=== PATIENT | male | born 1970 | race Caucasian/White ===

== ENCOUNTER 2022-11-27 09:15 | Outpatient (REF) | payer OTHER, SELFPAY ==
[2022-11-27 11:15] LABS: MANUAL DIFF FLAG NO
[2022-11-27 11:33] LABS: Basophils Percent Auto 0.7 % (0-2); Eosinophils Percent Auto 0.7 % (0-4); Hematocrit 41.3 % (42.0-52.0); Hemoglobin 14.2 g/dl (14.0-18.0); Imm Gran Abs Auto 0.02 X10*3/uL (0.00-0.03); Imm Gran Pct Auto 0.4 % (0.0-0.4); Lymphocytes Absolute Auto 1.5 X10*3/uL (1.2-4.9); Lymphocytes Percent Auto 31.5 % (20-40); Mean Corpuscular HGB Conc 34.4 g/dl (31.0-36.0); Mean Corpuscular Hemoglobin 29.6 pg (27.0-33.0); Mean Platelet Volume 10.3 fL (9.4-12.4); Monocytes Absolute Auto 0.4 X10*3/uL (0.1-1.2); Monocytes Percent Auto 7.6 % (2-11); Neutrophils Absolute Auto 2.7 x10*3/uL (2.0-8.3); Neutrophils Percent Auto 59.1 % (45-73); Platelet Count 266 X10*3/uL (160-400); Red Cell Distribution Width 13.2 % (11.0-16.0); White Blood Count 4.6 X10*3/uL (4.8-10.8)
[2022-11-27 11:57] LABS: Alanine Aminotransferase 41 U/L (0-40); Albumin Level 4.5 g/dL (3.5-5.0); Alkaline Phosphatase 74 U/L (39-117); Anion Gap 11 (12-20); Aspartate Amino Transferase 26 U/L (5-37); Bilirubin Total 1.2 mg/dL (0.0-1.0); Blood Urea Nitrogen 24 mg/dL (9-16); Calcium 9.5 mg/dL (8.4-10.2); Carbon Dioxide 25 mmol/L (22-29); Chloride 108 mmol/L (96-108); Cholesterol 191 mg/dL; Estimated Glomerular Filt Rate 56; Glucose Fasting 143 mg/dL (60-99); HDL Cholesterol 38 mg/dL; LDL Cholesterol Calculated 144 mg/dl; Potassium 4.7 mmol/L (3.3-5.1); Sodium 139 mmol/L (135-145); Total Protein 7.1 g/dL (6.5-8.0); Triglycerides 48 mg/dL
== END 2022-11-27 09:16 | disposition home or self-care (01) ==
LOC: HO.HMGCLDS 09:15
PROVIDERS: PCP Internal Medicine; Visit Provider Internal Medicine
DX: Z00.01 Encounter for general adult medical examination with abnormal findings (principal); I10 Essential (primary) hypertension
CPT/HCPCS: 36415; 80053; 80061; 84443; 85025

== ENCOUNTER 2023-01-29 12:50 | Outpatient (AMB) | payer OTHER, SELFPAY ==
--- NOTE | 2023-01-29 12:54 | A.OFFVIS_ITS ---
Intake Vital Signs 01/29/23 13:03 Height 6 ft 1 in Weight 211 lb 10.3 oz BMI 27.9 BP 126/79 Blood Pressure Location Lt brachial Position Sitting Pulse 83 Intake Visit Reasons: colonoscopy screening Intake Note: Mingo presents in the office as a new patient colonoscopy screening. CC: He states that his father passed from colorectal cancer. He was 74 years old when he passed and was diagnosed. 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 male here today for pre colonoscopy screening.? Patient was sent to us by his PCP.? This is his first colonoscopy screening.? Patient denies any gastrointestinal symptoms in the past or at present.? Patient reports that his father was diagnosed and from colon cancer about 3 years ago at age 74. Patient denies melena, hematochezia, unintentional weight loss or ribbon like stools. Patient states that he never been under anesthesia in the past. Negative for history of sleep apnea.? Denies any history of cardiac, renal, pulmonary, or hepatic disease.?? Recently diagnosed with diabetes, will manage with diet. No history of infectious? diseases like hepatitis A, B, C, HIV or tuberculosis.? Patient is not on any anticoagulation therapy. PFSH Family History Brother Substance use disorder Social History Housing: Apartment Patient Tobacco Use Status: Never used Tobacco e-Cigarette/Vaping Use: Never Used Second Hand Smoke Exposure: No service: No Current occupational status: employed Current occupation: [employer] Cognitive needs: No Hearing needs: No Vision needs: No Review of Systems Const Denies weight gain and Denies weight loss ENT Reports no additional complaints, Denies dysphagia and Denies odynophagia Card Reports no additional complaints Resp Reports no additional complaints GI Denies abdominal pain, Denies belching, Denies melena, Denies bloating, Denies change in bowel habits, Denies dysphagia, Denies excessive flatus, Denies dyspepsia, Denies heartburn, Denies diarrhea, Denies loose stools, Denies nausea, Denies odynophagia and Denies vomiting Reports no additional complaints Musc Reports no additional complaints Neuro Reports no additional complaints Psych Reports no additional complaints Endo Reports no additional complaints Physical Exam Const General: healthy appearing, no acute distress and well developed Nutritional Appearance: well nourished Orientation/consciousness: patient oriented x3 HEENT Head: Yes normal to inspection, Yes normocephalic and Yes atraumatic Face and sinus: Yes normal facial exam Mouth: Normal oral and palatal mucosa present Throat: Yes posterior oropharynx normal, Yes tonsils normal and Yes uvula midline Eyes General: appearance normal, both eyes and all related structures Neck Neck: Yes normal visual inspection, Yes full ROM and Yes trachea midline Thyroid: Thyroid normal Resp Effort & Inspection: normal respiratory effort, able to speak in complete sentences, no tracheal deviation and symmetric chest movement Auscultation: clear to auscultation bilaterally Cardio Rate: regular rate Heart sounds: S1 normal heart sound present and S2 normal heart sound present GI Inspection: Yes normal to inspection and No distended Palpation (GI): Soft to palpation, not firm, nontender and No hepatosplenomegaly present Auscultation: normal bowel sounds General: Yes no CVA tenderness Back/Spine/Pelvis Back: no CVA tenderness Skin General skin exam: elasticity normal, turgor normal and dry skin Neuro General: patient oriented x3 Psych Appearance: grossly normal Mental Status: mental status grossly normal Speech and movement: Normal speech and movement present Affect: normal affect Assessment & Plan Assessment & Plan (1) Colon cancer screening: Code(s): Z12.11 - Encounter for screening for malignant neoplasm of colon Plan: patient denies any GI, cardiac or respiratory symptoms.? Denies any issues with anesthesia in the past.? Denies any history of sleep apnea.? No history infectious diseases in the past or present.? Not on any anticoagulation therapy.? Patient denies melena, hematochezia, unintentional weight loss or ribbon like stools.? Discussed at length the pre-procedure,? prep, diet & medications as well as what to expect prior, during and after the procedure.?? Stressed the importance of good bowel prep. ?Recommended the use of Vaseline or Calmoseptine OTC & baby wipes with bowel movements to promote comfort.? ?Patient verbalizes understanding and agrees to plan of care.? He was given the opportunity to ask questions and all questions answered.? We will see him after the procedure.? Medications: New bisacodyl (Dulcolax (bisacodyl)) take 2 tabs at noon the day before your colonoscopy 10 mg (2 x 5 mg) PO ONCE 1 day 2 tabs 0RF Z12.11 - Encounter for screening for malignant neoplasm of colon polyethylene glycol 3350 (Miralax) As directed by gastroenterology department at [facility] 238 grams PO ONCE 238 grams 0RF Z12.11 - Encounter for screening for malignant neoplasm of colon Coding Level of Care Code New Pt Level 4 (43936) Diagnoses Colon cancer screening Z12.11 Time Spent (min) 40 Comment 30 minutes spent with patient and additional 10 minutes spent reviewing his records
[2023-01-29 13:03] VITALS: BP 126/79; PULSE 83; BMI 27.9
== END 2023-01-29 14:21 | disposition home or self-care (01) ==
PROVIDERS: PCP Internal Medicine; Visit Provider Nurse Practitioner Family
DX: Z01.818 Encounter for other preprocedural examination (principal); Z12.11 Encounter for screening for malignant neoplasm of colon; Z80.0 Family history of malignant neoplasm of digestive organs
CPT/HCPCS: 99204

== ENCOUNTER → 2023-01-29 12:50 | Outpatient (BNVA) | payer OTHER, SELFPAY | PROVIDERS: PCP Internal Medicine; Visit Provider Nurse Practitioner Family ==

== ENCOUNTER 2023-05-13 09:24 | Outpatient (REF) | payer OTHER, SELFPAY ==
[2023-05-13 11:44] LABS: Estimated Average Glucose 140 mg/dL; Hemoglobin A1c % 6.5 % (<6.0)
[2023-05-13 12:00] LABS: Alanine Aminotransferase 30 U/L (0-40); Albumin Level 4.2 g/dL (3.5-5.0); Alkaline Phosphatase 105 U/L (39-117); Anion Gap 10 (12-20); Aspartate Amino Transferase 24 U/L (5-37); Bilirubin Total 0.8 mg/dL (0.0-1.0); Blood Urea Nitrogen 17 mg/dL (9-16); Calcium 9.1 mg/dL (8.4-10.2); Carbon Dioxide 24 mmol/L (22-29); Chloride 106 mmol/L (96-108); Cholesterol 181 mg/dL (<200); Estimated Glomerular Filt Rate > 60; Glucose Fasting 130 mg/dL (60-99); HDL Cholesterol 38 mg/dL (>40); LDL Cholesterol Calculated 130 mg/dL (<100); Potassium 4.2 mmol/L (3.3-5.1); Sodium 136 mmol/L (135-145); Total Protein 7.2 g/dL (6.5-8.0); Triglycerides 69 mg/dL (<150)
== END 2023-05-13 09:25 | disposition home or self-care (01) ==
LOC: HO.HMGCLDS 09:24
PROVIDERS: PCP Internal Medicine; Visit Provider Internal Medicine
DX: R79.89 Other specified abnormal findings of blood chemistry (principal); E78.9 Disorder of lipoprotein metabolism, unspecified; L40.9 Psoriasis, unspecified; E11.65 Type 2 diabetes mellitus with hyperglycemia
CPT/HCPCS: 36415; 80053; 80061; 83036

== ENCOUNTER 2023-05-14 09:56 | Outpatient (REF) | payer OTHER, SELFPAY ==
[2023-05-14 14:22] LABS: Creatinine Urine 59.47 mg/dL; Microalbumin Urine < 5.0 mg/L
== END 2023-05-14 09:57 | disposition home or self-care (01) ==
LOC: HO.HMGCLDS 09:56
PROVIDERS: PCP Internal Medicine; Visit Provider Internal Medicine
DX: R79.89 Other specified abnormal findings of blood chemistry (principal); E78.9 Disorder of lipoprotein metabolism, unspecified; L40.9 Psoriasis, unspecified; E11.65 Type 2 diabetes mellitus with hyperglycemia
CPT/HCPCS: 82043; 82570

== ENCOUNTER 2023-05-15 09:33 | Outpatient (AMB) | payer OTHER, SELFPAY ==
[2023-05-15 09:36] VITALS: BP 128/88; PULSE 68; O2SAT 98; BMI 28.0
--- NOTE | 2023-05-15 09:36 | MHC.PC.OV ---
Vital Signs 05/15/23 09:36 Height 6 ft 1 in Weight 212 lb BMI 28.0 BP 128/88 Blood Pressure Location Rt brachial Position Sitting Pulse 68 Pulse Source Pulse Oximeter Pulse Oximetry (%) 98 Oxygen Delivery Method Room Air Intake Visit Reasons: 4 month follow up Allergies No Known Allergies [No Known Allergies*] Allergy (Verified 05/15/23 09:36) Medication List - Last Reconciled 05/15/23 by Magda Woodard MD bisacodyl (Dulcolax (bisacodyl)) 10 mg (2 x 5 mg) PO ONCE 1 day clobetasol 0.05% 1 appl topical BID 2 weeks polyethylene glycol 3350 (Miralax) 238 grams PO ONCE Tobacco use date assessed: 05/15/23 Dental Screening Dental Screen Date: 05/15/23 Did you have a dental visit in the last 12 months?: Yes Did you have a dental problem in the last 6 months where you did not have access to dental care?: No Was dental information given to patient?: Patient has dentist HPI 4 month follow up HPI Details Patient is a 52-year-old gentleman came in today for his regular follow-up appointment His hemoglobin A1c has improved to 6.5% from 6.6 Patient is a new onset diabetic and has been controlling his diet His liver enzymes are normal now And LDL has improved from before. Blood pressure is within normal range He will repeat labs again in 4 months with follow-up appointment [facility] Family History Brother Substance use disorder Social History Housing: Apartment Patient Tobacco Use Status: Never used Tobacco e-Cigarette/Vaping Use: Never Used Second Hand Smoke Exposure: No service: No Current occupational status: employed Current occupation: [employer] Cognitive needs: No Hearing needs: No Vision needs: No Questionnaire PHQ-9 Over the last 2 weeks, how often have you been bothered by any of the following problems? 1. Little interest or pleasure in doing things: not at all 2. Feeling down, depressed, or hopeless: not at all 3. Trouble falling or staying asleep, or sleeping too much: not at all 4. Feeling tired or having little energy: not at all 5. Poor appetite or overeating: not at all 6. Feeling bad about yourself - or that you are a failure or have let yourself or your family down: not at all 7. Trouble concentrating on things, such as reading the newspaper or watching television: not at all 8. Moving or speaking so slowly that other people could have noticed. Or the opposite - being so fidgety or restless that you have been moving around a lot more than usual: not at all 9. Thoughts that you would be better off or of hurting yourself in some way: not at all Total score: 0 Depression Screening Interpretation: Negative Depression Screening Done: Yes 83448 - PHQ-9 Billing: Yes Source: Developed by Drs. Toy Walls, Lashae Mtz, Estiven Daugherty and colleagues, with an educational jewels from [employer]. Thrive Questionnaire Date Thrive assessed: 11/20/22 AUDIT C Alcohol Use Questionnaire (AUDIT-C) 1. How often do you have a drink containing alcohol?: Never 3. How often do you have six or more drinks on one occasion?: Never Total Score: 0 Score Reviewed/Action Taken: Yes MARCO-7 AMB Questionnaire MARCO-7 Date MARCO - 7 assessed: 11/20/22 Source: Developed by Drs. Toy Walls, Lashae Mtz, Estiven Daugherty and colleagues, with an educational jewels from [employer]. Review of Systems Const Denies chills and Denies fever(s) ENT Denies epistaxis and Denies nasal discharge Card Denies chest pain Resp Denies chest congestion, Denies cough and Denies hemoptysis GI Denies diarrhea and Denies nausea Skin/Breast Denies rash Neuro Reports no additional complaints Psych Reports no additional complaints Endo Reports no additional complaints Physical exam (Primary Care) Vital Signs: Last Vital Signs Pulse 68 05/15/23 09:36 BP 128/88 05/15/23 09:36 Pulse Ox 98 05/15/23 09:36 Oxygen Delivery Method Room Air 05/15/23 09:36 BMI result Body Mass Index 28.0 Tobacco/Smoking Status: Tobacco use Status Tobacco use date assessed 05/15/23 05/15/23 09:37 Patient Tobacco Use Status Never used Tobacco 05/15/23 09:37 e-Cigarette/Vaping Use Never Used 05/15/23 09:37 PHQ-9: PHQ-9 Score PHQ-9: Total score 0 05/15/23 09:59 Depression Screening Interpretation: Negative Thrive Assessment: Date of Thrive Assessment Date Thrive assessed 11/20/22 05/15/23 09:37 Const General: cooperative, comfortable and no acute distress Orientation/consciousness: patient oriented x3 HENMT Head: Yes normocephalic Eyes General: appearance normal, both eyes and all related structures Neck Neck: Yes supple Resp Effort & Inspection: normal respiratory effort, no cough and no stridor Cardio Rhythm: regular rhythm Heart sounds: S1 normal heart sound present and S2 normal heart sound present Skin General skin exam: turgor normal Neuro General: patient oriented x3, tone normal and moves all extremities Extrem Right lower extremity: no edema Left lower extremity: no edema Assessment and Plan Assessment & Plan (1) Type 2 diabetes mellitus: Code(s): E11.9 - Type 2 diabetes mellitus without complications Qualifiers: Diabetes mellitus intermediate manager insulin use: without long-term use Diabetes mellitus complication status: without complication Qualified Code(s): E11.9 - Type 2 diabetes mellitus without complications Plan Patient is a 52-year-old gentleman came in today for his regular follow-up appointment His hemoglobin A1c has improved to 6.5% from 6.6 Patient is a new onset diabetic and has been controlling his diet His liver enzymes are normal now And LDL has improved from before. Blood pressure is within normal range He will repeat labs again in 4 months with follow-up appointment Orders: Orders Complete Blood Count Auto Diff 4 Months E11.9 - Type 2 diabetes mellitus without complications Lipid Panel 4 Months E11.9 - Type 2 diabetes mellitus without complications Comprehensive [place]. Panel Fast 4 Months E11.9 - Type 2 diabetes mellitus without complications Hemoglobin A1c 4 Months E11.9 - Type 2 diabetes mellitus without complications Coding Level of Care Code Est Pt Level 3 (40996) Diagnoses Type 2 diabetes mellitus without complication, without long-term current use of insulin E11.9 Diabetes mellitus long-term insulin use: without long-term use Diabetes mellitus complication status: without complication
== END 2023-05-15 10:46 | disposition home or self-care (01) ==
PROVIDERS: PCP Internal Medicine; Visit Provider Internal Medicine
DX: E11.9 Type 2 diabetes mellitus without complications (principal)
CPT/HCPCS: 99213

== ENCOUNTER 2023-07-03 07:24 | Day surgery (SDC) | payer OTHER, SELFPAY ==
[2023-06-28 13:30] VITALS: BMI 28.0
--- NOTE | 2023-07-03 07:42 | P.HPSUR_ITS ---
Pre-Procedural Eval Section A Date of Service: 07/03/23 Section B Chief Complaint: Encounter for screening for malignant neoplasm Details of Present Illness: father CRC but was 74 Relevant Family History (Specify if Yes): Yes Relevant Social History: None Present Medications: see Short Stay Collaborative assessment Medical History: Significant History (Psoriasis Lipid disorder Diabetes) History of Previous Operations: No relevant previous surgery Allergies: Allergies Allergy/AdvReac Type Severity Reaction Status Date / Time No Known Allergies Allergy Verified 05/15/23 09:36 [No Known Allergies*] Review of Systems Sugical H&P ROS: Negative: Constitution, Cardiovascular, Respiratory, Neurological, Psychiatric, Hem-Onc, Allergic/Immunologic, Gastrointestinal, Genitourinary, Musculoskeletal, Integumentary, Endocrine and E yes/Ears/Nose/Throat Exam Surgical H&P Exam: Normal: HEENT, Normal: Heart, Normal: Lungs, Normal: Extremities, Normal: Abdomen, Normal: Skin and Normal: Neurological Plan Diagnosis/Plan: Unchanged I have reviewed the history and physical and performed a pertinent physical examination on my patient. No changes have occurred unless specified. Time Spent With Patient Time: Total time managing care of this patient today ____ minutes.
[2023-07-03 08:04] VITALS: BP 125/87; PULSE 92; RESP 16; TEMP 36.9; O2SAT 98; BMI 27.5
--- NOTE | 2023-07-03 08:20 | P.CONAN_ITS ---
HPI - Anesthesia Eval Consult details Narrative: Colonoscopy [facility] Active Problems Active Problems: All Active Problems (Updated 06/28/23 @ 13:29 by Ana Alexander RN) Type 2 diabetes mellitus (Acute) Lipid disorder (Acute) LFT elevation (Acute) Elevated blood sugar (Acute) Colon cancer screening (Acute) Psoriasis (Acute) Encounter for general adult medical examination with abnormal findings (Acute) Rash (Acute) Past Medical History Medical History (Updated 06/28/23 @ 13:29 by Ana Alexander RN) Psoriasis Lipid disorder Diabetes Family History Family History Brother Substance use disorder Family history of problems with anesthesia: No Surgical History Surgical History (Updated 07/03/23 @ 08:03 by Meghan Aiken) No pertinent past surgical history History of Problems with Anesthesia: No Social History Social History Housing: Apartment Patient Tobacco Use Status: Never used Tobacco e-Cigarette/Vaping Use: Never Used Second Hand Smoke Exposure: No Use of substances other than those prescribed or required for medical reasons: No Are you DNR?: No Advance Directives: No Advance Directives Information Provided: Yes service: No Current occupational status: employed Current occupation: [employer] Cognitive needs: No Hearing needs: No Vision needs: No Meds Allergies Allergy/AdvReac Type Severity Reaction Status Date / Time No Known Allergies Allergy Verified 07/03/23 08:03 [No Known Allergies*] Exam Height,Weight and Vital Signs: Height 6 ft 1 in Weight 94.71 kg Last Vital Signs Temp 98.4 F 07/03/23 08:04 Pulse 92 07/03/23 08:04 Resp 16 07/03/23 08:04 BP 125/87 07/03/23 08:04 Pulse Ox 98 07/03/23 08:04 O2 Del Method Room Air 07/03/23 08:04 Airway Mallampati Class: II TM Dist: >3cm Neck ROM: Full Heart: rrr Lungs: cta Assessment and Plan Final Anesthetic Review Family History of Problems with Anesthesia: No History of Problems with Anesthesia: No NPO: Yes Final Preanesthetic Review: No Changes in Pt Med Stat, Meds/Allgs Chart Reviewed, Consent Obtained/Reviewed and Anes Risks/Benef Reviewed Patient Risk: Intermediate Procedure Risk: Low Anesthetic Plan Anesthetic Plan: MAC: and Agree w/ Assess. and Plan Disposition: Standard PACU
[2023-07-03] MEDS: Lactated Ringers 1,000 ML 80 ML IVCONT (08:52)
--- NOTE | 2023-07-03 08:56 | W.PM.OPN ---
Operative Note Operative Note Date of Service: 07/03/23 Narrative: Operative Information Procedure Description: Colonoscopy Indication: screening Anesthesia: MAC COLONOSCOPY Instrument: Olympus variable stiffness pediatric scope 190L Colonoscopy Monitoring: Vital signs and clinical assessment, continuous EKG monitoring, Pulse oximetry, Carbon Dioxide monitoring and blood pressure monitoring were done throughout the procedure. Colon withdrawal time was 23 minutes. Procedure: The patient was placed in the left lateral decubitis position and pre-procedure medications were administered. After a digital rectal examination of the ano-rectum, the video colonoscope was inserted into the rectum and advanced through the colon to the cecum/TI. The colonoscope was slowly withdrawn in a retrograde panoramic fashion and the colon mucosa was carefully examined including a retroflexed view of the rectum. Findings and interventions are described below. Procedure Difficulty: easy Findings: Terminal Ileum-normal Cecum:normal Ascending Colon: 10-12 mm flat polyp raised with eleview and then removed with cold snare with one ultra clip applied to the defect Transverse Colon - 4-5 mm sessile polyp removed with cold forceps Descending Colon:normal Sigmoid Colon: normal Rectum: Retroflexion with small internal hemorrhoids, grade I, 10 mm sessile polyp removed with cold snare Anorectum - normal Colon preparation: [place] Bowel Preparation Scale Right colon; 3 Transverse colon: 2 Left colon; 1-2 (0 = Unprepared colon segment with mucosa not seen due to solid stool that cannot be cleared. 1 = Portion of mucosa of the colon segment seen, but other areas of the colon segment not well seen due to staining, residual stool and/or opaque liquid. 2 = Minor amount of residual staining, small fragments of stool and/or opaque liquid, but mucosa of colon segment seen well. 3 = Entire mucosa of colon segment seen well with no residual staining, small fragments of stool or opaque liquid) Impression and Post Procedure Diagnosis: polyps internal hemorrhoids Plan: High fiber diet leaflet Avoid straining at stool, epsom salts and sitz bath, anusol supps or cream Repeat Colonoscopy in 3-4 years due to polyps or earlier if clinically indicated Above findings were reviewed with the patient and relevant handouts were provided if indicated.
--- NOTE | 2023-07-03 10:00 | PC.NURSE ---
Patient has diagnosis of DM2. Diet controlled. Does not take blood sugars at home. No preop blood sugar needed per Dr. Dick.
[2023-07-03 10:36] VITALS: BP 116/73; PULSE 86; RESP 16; TEMP 36.3; O2SAT 97
[2023-07-03 10:51] VITALS: BP 114/78; PULSE 82; RESP 14; O2SAT 98
[2023-07-03 11:06] VITALS: BP 128/86; PULSE 79; RESP 15; TEMP 37.1; O2SAT 99
== END 2023-07-03 11:23 | disposition home or self-care (01) ==
PROVIDERS: PCP Internal Medicine; Visit Provider Internal Medicine Gastroenterology
PROC: 0DJD8ZZ Inspection of Lower Intestinal Tract, Via Natural or Artificial Opening Endoscopic (ICD-10-PCS; CPT 45378; principal; 2023-07-03 09:00)
DX: Z12.11 Encounter for screening for malignant neoplasm of colon (principal); Z80.0 Family history of malignant neoplasm of digestive organs; D12.2 Benign neoplasm of ascending colon; D12.3 Benign neoplasm of transverse colon; K62.1 Rectal polyp; K64.0 First degree hemorrhoids; E11.9 Type 2 diabetes mellitus without complications; E75.6 Lipid storage disorder, unspecified; L40.9 Psoriasis, unspecified; Z79.899 Other long term (current) drug therapy
CPT/HCPCS: 45385; 45380; 45381; 88305; J2704

== ENCOUNTER → 2023-07-03 07:24 | Outpatient (BNV) | payer OTHER, SELFPAY | PROVIDERS: PCP Internal Medicine; Visit Provider Internal Medicine Gastroenterology | DX: Z12.11 Encounter for screening for malignant neoplasm of colon (principal); K63.5 Polyp of colon; K64.8 Other hemorrhoids | CPT/HCPCS: 45380; 45385 ==

== ENCOUNTER 2023-07-17 09:30 | Outpatient (AMB) | payer OTHER, SELFPAY ==
--- NOTE | 2023-07-17 09:31 | MHC.OFFVIS ---
Intake Vital Signs 07/17/23 09:33 Height 6 ft 1 in Weight 209 lb 7.026 oz BMI 27.6 BP 140/63 H Blood Pressure Location Lt brachial Position Sitting Pulse 94 Intake Visit Reasons: S/P [place]; OGLESBY Intake Note: Mingo presents in the office as a follow up colonoscopy. CC: He states that he is feeling good and no concers at this time. Allergies No Known Allergies [No Known Allergies*] Allergy (Verified 07/17/23 09:33) HPI S/P [place]; OGLESBY HPI Details LAST VISIT: Colon cancer screening patient denies any GI, cardiac or respiratory symptoms.? Denies any issues with anesthesia in the past.? Denies any history of sleep apnea.? No history infectious diseases in the past or present.? Not on any anticoagulation therapy.? Patient denies melena, hematochezia, unintentional weight loss or ribbon like stools.? Discussed at length the pre-procedure,? prep, diet & medications as well as what to expect prior, during and after the procedure.?? Stressed the importance of good bowel prep. ?Recommended the use of Vaseline or Calmoseptine OTC & baby wipes with bowel movements to promote comfort.? ?Patient verbalizes understanding and agrees to plan of care.? He was given the opportunity to ask questions and all questions answered.? We will see him after the procedure.? Plan Medications New bisacodyl (Dulcolax (bisacodyl)) take 2 tabs at noon the day before your colonoscopy 10 mg (2 x 5 mg) PO ONCE 1 day 2 tabs 0RF Z12.11 - Encounter for screening for malignant neoplasm of colon polyethylene glycol 3350 (Miralax) As directed by gastroenterology department at [facility] 238 grams PO ONCE 238 grams 0RF Z12.11 - Encounter for screening for malignant neoplasm of colon COLONOSCOPY Findings: Terminal Ileum-normal Cecum:normal Ascending Colon: 10-12 mm flat polyp raised with eleview and then removed with cold snare with one ultra clip applied to the defect Transverse Colon - 4-5 mm sessile polyp removed with cold forceps Descending Colon:normal Sigmoid Colon: normal Rectum: Retroflexion with small internal hemorrhoids, grade I, 10 mm sessile polyp removed with cold snare Anorectum - normal Colon preparation: [place] Bowel Preparation Scale Right colon; 3 Transverse colon: 2 Left colon; 1-2 (0 = Unprepared colon segment with mucosa not seen due to solid stool that cannot be cleared. 1 = Portion of mucosa of the colon segment seen, but other areas of the colon segment not well seen due to staining, residual stool and/or opaque liquid. 2 = Minor amount of residual staining, small fragments of stool and/or opaque liquid, but mucosa of colon segment seen well. 3 = Entire mucosa of colon segment seen well with no residual staining, small fragments of stool or opaque liquid) Impression and Post Procedure Diagnosis: polyps internal hemorrhoids Plan: High fiber diet leaflet Avoid straining at stool, epsom salts and sitz bath, anusol supps or cream Repeat Colonoscopy in 3-4 years due to polyps or earlier if clinically indicated PATHOLOGY RESULTS Diagnosis A. Colon, transverse, polypectomy: Tubular adenoma; negative for high-grade dysplasia or carcinoma. B. Colon, ascending, polypectomy: Fragments of sessile serrated lesion/polyp; negative for cytologic dysplasia. C. Rectum, polypectomy: Hyperplastic mucosal polyp. TODAY'S VISIT: Patient is here today for follow-up and to discuss colonoscopy results. Patient denies any ill effects from the prep, anesthesia or procedure itself. Patient reports to be feeling well. Denies any GI concerning symptoms. Patient was found to have tubular adenoma and sessile serrated polyps found. Patient will need to return for colonoscopy in 3 years. Patient denies melena, hematochezia, unintentional weight loss or ribbon like stools. Patient denies any dyspepsia, dysphagia or odynophagia. [facility] Medical History (Updated 07/17/23 @ 09:49 by BRIT Perez-) Sessile serrated polyp of colon Tubular adenoma of colon Psoriasis Lipid disorder Diabetes Surgical History (Updated 07/17/23 @ 09:33 by YESSENIA Dumas) Hx of colonoscopy No pertinent past surgical history Family History Brother Substance use disorder Social History Housing: Apartment Patient Tobacco Use Status: Never used Tobacco e-Cigarette/Vaping Use: Never Used Second Hand Smoke Exposure: No service: No Current occupational status: employed Current occupation: [employer] Cognitive needs: No Hearing needs: No Vision needs: No Review of Systems Const Denies weight gain and Denies weight loss ENT Reports no additional complaints, Denies dysphagia and Denies odynophagia Card Reports no additional complaints Resp Reports no additional complaints GI Denies abdominal pain, Denies belching, Denies melena, Denies bloating, Denies change in bowel habits, Denies dysphagia, Denies excessive flatus, Denies dyspepsia, Denies heartburn, Denies diarrhea, Denies loose stools, Denies nausea, Denies odynophagia and Denies vomiting Reports no additional complaints Musc Reports no additional complaints Neuro Reports no additional complaints Psych Reports no additional complaints Endo Reports no additional complaints Physical Exam Vital Signs: Last Vital Signs Pulse 94 07/17/23 09:33 BP 140/63 H 07/17/23 09:33 BMI result Body Mass Index 27.6 Const General: healthy appearing, no acute distress and well developed Nutritional Appearance: well nourished Orientation/consciousness: patient oriented x3 HEENT Head: Yes normal to inspection, Yes normocephalic and Yes atraumatic Face and sinus: Yes normal facial exam Mouth: Normal oral and palatal mucosa present Throat: Yes posterior oropharynx normal, Yes tonsils normal and Yes uvula midline Eyes General: appearance normal, both eyes and all related structures Neck Neck: Yes normal visual inspection, Yes full ROM and Yes trachea midline Thyroid: Thyroid normal Resp Effort & Inspection: normal respiratory effort, able to speak in complete sentences, no tracheal deviation and symmetric chest movement Auscultation: clear to auscultation bilaterally Cardio Rate: regular rate GI Inspection: Yes normal to inspection and No distended Palpation (GI): Soft to palpation, not firm, nontender and No hepatosplenomegaly present Auscultation: normal bowel sounds General: Yes no CVA tenderness Back/Spine/Pelvis Back: no CVA tenderness Skin General skin exam: elasticity normal, turgor normal and dry skin Neuro General: patient oriented x3 Psych Appearance: grossly normal Mental Status: mental status grossly normal Assessment & Plan Assessment & Plan (1) Tubular adenoma of colon: Code(s): D12.6 - Benign neoplasm of colon, unspecified (2) Sessile serrated polyp of colon: Code(s): D12.6 - Benign neoplasm of colon, unspecified (3) Status post colonoscopy: Code(s): Z98.890 - Other specified postprocedural states Plan Patient denies any ill effects from the prep, anesthesia or procedure itself. Patient will repeat colonoscopy in 3 years, sooner if clinically necessary. Currently patient denies any GI concerning symptoms and will follow-up in our office on as needed basis. He is agreeable to this plan and verbalizes understanding of instructions. He was given the opportunity to ask questions and all questions answered. Thank you for allowing me to participate in his care Coding Level of Care Code Est Pt Level 3 (29499) Diagnoses Tubular adenoma of colon D12.6 Sessile serrated polyp of colon D12.6 Status post colonoscopy Z98.890 Time Spent (min) 25 Comment 15 minutes spent with patient and additional 10 minutes spent reviewing his records
[2023-07-17 09:33] VITALS: BP 140/63; PULSE 94; BMI 27.6
== END 2023-07-17 10:02 | disposition home or self-care (01) ==
PROVIDERS: PCP Internal Medicine; Visit Provider Nurse Practitioner Family
DX: D12.6 Benign neoplasm of colon, unspecified (principal); Z98.890 Other specified postprocedural states
CPT/HCPCS: 99213

== ENCOUNTER → 2023-07-17 09:30 | Outpatient (BNVA) | payer OTHER, SELFPAY | PROVIDERS: PCP Internal Medicine; Visit Provider Nurse Practitioner Family ==

== ENCOUNTER 2023-09-16 08:38 | Outpatient (REF) | payer OTHER, SELFPAY ==
[2023-09-16 11:21] LABS: MANUAL DIFF FLAG NO
[2023-09-16 11:48] LABS: Basophils Percent Auto 0.4 % (0-2); Eosinophils Absolute Auto 0.1 X10*3/uL (0.0-0.4); Eosinophils Percent Auto 1.1 % (0-4); Hematocrit 41.3 % (42.0-52.0); Hemoglobin 13.8 g/dl (14.0-18.0); Imm Gran Abs Auto 0.02 X10*3/uL (0.00-0.03); Imm Gran Pct Auto 0.4 % (0.0-0.4); Lymphocytes Absolute Auto 1.2 X10*3/uL (1.2-4.9); Lymphocytes Percent Auto 21.8 % (20-40); Mean Corpuscular HGB Conc 33.4 g/dl (31.0-36.0); Mean Corpuscular Hemoglobin 29.1 pg (27.0-33.0); Mean Corpuscular Volume 87.1 fL (80.0-98.0); Mean Platelet Volume 9.8 fL (9.4-12.4); Monocytes Absolute Auto 0.4 X10*3/uL (0.1-1.2); Monocytes Percent Auto 7.5 % (2-11); Neutrophils Absolute Auto 3.7 x10*3/uL (2.0-8.3); Neutrophils Percent Auto 68.8 % (45-73); Platelet Count 245 X10*3/uL (160-400); Red Blood Count 4.74 X10*6/uL (4.60-5.80); Red Cell Distribution Width 13.9 % (11.0-16.0); White Blood Count 5.3 X10*3/uL (4.8-10.8)
[2023-09-16 11:54] LABS: Alanine Aminotransferase 27 U/L (0-40); Albumin Level 4.4 g/dL (3.5-5.0); Alkaline Phosphatase 88 U/L (39-117); Anion Gap 10 (12-20); Aspartate Amino Transferase 24 U/L (5-37); Bilirubin Total 1.3 mg/dL (0.0-1.0); Blood Urea Nitrogen 16 mg/dL (9-16); Calcium 9.5 mg/dL (8.4-10.2); Carbon Dioxide 29 mmol/L (22-29); Chloride 106 mmol/L (96-108); Cholesterol 198 mg/dL (<200); Estimated Glomerular Filt Rate > 60; Glucose Fasting 134 mg/dL (60-99); HDL Cholesterol 42 mg/dL (>40); LDL Cholesterol Calculated 141 mg/dL (<100); Potassium 4.3 mmol/L (3.3-5.1); Sodium 141 mmol/L (135-145); Total Protein 7.5 g/dL (6.5-8.0); Triglycerides 75 mg/dL (<150)
[2023-09-16 12:12] LABS: Estimated Average Glucose 140 mg/dL; Hemoglobin A1c % 6.5 % (<6.0)
== END 2023-09-16 08:39 | disposition home or self-care (01) ==
LOC: HO.HMGCLDS 08:38
PROVIDERS: PCP Internal Medicine; Visit Provider Internal Medicine
DX: E11.9 Type 2 diabetes mellitus without complications (principal)
CPT/HCPCS: 36415; 80053; 80061; 83036; 85025

== ENCOUNTER 2023-09-18 08:39 | Outpatient (AMB) | payer OTHER, SELFPAY ==
[2023-09-18 08:42] VITALS: BP 136/74; PULSE 101; O2SAT 98; BMI 27.7
--- NOTE | 2023-09-18 08:42 | MHC.PC.OV ---
Vital Signs 09/18/23 08:42 Height 6 ft 1 in Weight 210 lb 2 oz BMI 27.7 BP 136/74 Blood Pressure Location Lt brachial Position Sitting Pulse 101 H Pulse Source Pulse Oximeter Pulse Oximetry (%) 98 Oxygen Delivery Method Room Air Intake Visit Reasons: 4 Month follow up Allergies No Known Allergies [No Known Allergies*] Allergy (Verified 09/18/23 08:42) Medication List - Last Reconciled 09/18/23 by Magda Woodard MD clobetasol 0.05% 1 appl topical BID 2 weeks Tobacco use date assessed: 09/18/23 Dental Screening Dental Screen Date: 09/18/23 Did you have a dental visit in the last 12 months?: Yes Did you have a dental problem in the last 6 months where you did not have access to dental care?: No Was dental information given to patient?: Patient has dentist HPI 4 Month follow up HPI Details Patient is a 53-year-old gentleman came in today for his regular follow-up appointment Diabetes mellitus: Diet-controlled hemoglobin A1c came back at 6.5 at recent labs Blood pressure is 136/74 patient is prehypertensive, we will continue to monitor LDL came back at 141 we talked about starting medication small dose, we will be labs again next time and if it is still above 100 we will start medication Had colonoscopy done by Dr. Judd 1 tubular adenoma was found patient also have a family history of colon cancer Next colonoscopy will be in for years that is 2028 Psoriatic rash stable Follow-up 4 months labs are needed before visit with fasting [facility] Medical History Sessile serrated polyp of colon Tubular adenoma of colon Psoriasis Lipid disorder Diabetes Surgical History Hx of colonoscopy No pertinent past surgical history Family History Brother Substance use disorder Social History Housing: Apartment Patient Tobacco Use Status: Never used Tobacco e-Cigarette/Vaping Use: Never Used Second Hand Smoke Exposure: No service: No Current occupational status: employed Current occupation: [employer] Cognitive needs: No Hearing needs: No Vision needs: No Questionnaire PHQ-9 Over the last 2 weeks, how often have you been bothered by any of the following problems? 1. Little interest or pleasure in doing things: not at all 2. Feeling down, depressed, or hopeless: not at all 3. Trouble falling or staying asleep, or sleeping too much: not at all 4. Feeling tired or having little energy: not at all 5. Poor appetite or overeating: not at all 6. Feeling bad about yourself - or that you are a failure or have let yourself or your family down: not at all 7. Trouble concentrating on things, such as reading the newspaper or watching television: not at all 8. Moving or speaking so slowly that other people could have noticed. Or the opposite - being so fidgety or restless that you have been moving around a lot more than usual: not at all 9. Thoughts that you would be better off or of hurting yourself in some way: not at all Total score: 0 Depression Screening Interpretation: Negative Depression Screening Done: Yes 06343 - PHQ-9 Billing: Yes Source: Developed by Drs. Toy Walls, Lashae Mtz, Estiven Daugherty and colleagues, with an educational jewels from [employer]. Thrive Questionnaire Date Thrive assessed: 09/18/23 I am a: Patient What is your living situation today?: I have a steady place to live Within the past 12 months, did the food you bought not last and you didn't have the money to get more?: Never true Within the past 12 months, did you worry whether your food would run out before you got money to buy more?: Never true Do you have trouble paying for medicines?: No Do you have trouble getting transportation to medical appointments?: No Do you have trouble paying your heating and electricity bill?: No Do you have trouble taking care of your child, family member or friend?: No Do you have trouble with day-to-day activities such as bathing, preparing meals, shopping, managing finances, etc.?: No Are you currently unemployed and looking for a job?: No Are you interested in more education?: No Please select the resources that you would like help with: None Currently or been in a relationship where the following occur: no concerns reported THRIVE Score: 0 AUDIT C Alcohol Use Questionnaire (AUDIT-C) 1. How often do you have a drink containing alcohol?: Never 3. How often do you have six or more drinks on one occasion?: Never Total Score: 0 Score Reviewed/Action Taken: Yes MARCO-7 AMB Questionnaire MARCO-7 Date MARCO - 7 assessed: 09/18/23 Feeling nervous, anxious, or on edge: 0 = Not at all Not being able to stop or control worryin = Not at all Worrying too much about different things: 0 = Not at all Trouble relaxin = Not at all Being so restless that it is hard to sit still: 0 = Not at all Becoming easily annoyed or irritable: 0 = Not at all Feeling afraid as if something awful might happen: 0 = Not at all Total MARCO-7 score (0-4 normal; 5-9 mild; 10-14 moderate; 15-21 severe): 0 Source: Developed by Drs. Toy Walls, Lashae Mtz, Estiven Daugherty and colleagues, with an educational jewels from [employer]. MARCO-7 Assessment Billing MARCO-7 Assessment Tool: MARCO-7 Assessment 01902 Review of Systems Const Denies chills and Denies fever(s) ENT Denies epistaxis and Denies nasal discharge Card Denies chest pain Resp Denies chest congestion, Denies cough and Denies hemoptysis GI Denies diarrhea and Denies nausea Skin/Breast Denies rash Neuro Reports no additional complaints Psych Reports no additional complaints Endo Reports no additional complaints Physical exam (Primary Care) Vital Signs: Last Vital Signs Pulse 101 H 09/18/23 08:42 BP 136/74 09/18/23 08:42 Pulse Ox 98 09/18/23 08:42 Oxygen Delivery Method Room Air 09/18/23 08:42 BMI result Body Mass Index 27.7 Tobacco/Smoking Status: Tobacco use Status Tobacco use date assessed 09/18/23 09/18/23 08:43 Patient Tobacco Use Status Never used Tobacco 09/18/23 08:43 e-Cigarette/Vaping Use Never Used 09/18/23 08:43 PHQ-9: PHQ-9 Score PHQ-9: Total score 0 09/18/23 09:00 Depression Screening Interpretation: Negative Thrive Assessment: Date of Thrive Assessment Date Thrive assessed 09/18/23 09/18/23 08:46 Currently or been in a relationship where the following occur: no concerns reported Const General: cooperative, comfortable and no acute distress Orientation/consciousness: patient oriented x3 HENMT Head: Yes normocephalic Eyes General: appearance normal, both eyes and all related structures Neck Neck: Yes supple Resp Effort & Inspection: normal respiratory effort, no cough and no stridor Cardio Rhythm: regular rhythm Heart sounds: S1 normal heart sound present and S2 normal heart sound present Skin General skin exam: turgor normal Neuro General: patient oriented x3, tone normal and moves all extremities Extrem Right lower extremity: no edema Left lower extremity: no edema Assessment and Plan Assessment & Plan (1) Type 2 diabetes mellitus: Code(s): E11.9 - Type 2 diabetes mellitus without complications Qualifiers: Diabetes mellitus complication status: without complication Diabetes mellitus custodial insulin use: without custodial use Qualified Code(s): E11.9 - Type 2 diabetes mellitus without complications (2) Lipid disorder: Code(s): E78.9 - Disorder of lipoprotein metabolism, unspecified (3) LFT elevation: Code(s): R79.89 - Other specified abnormal findings of blood chemistry (4) Tubular adenoma of colon: Code(s): D12.6 - Benign neoplasm of colon, unspecified (5) Psoriasis: Code(s): L40.9 - Psoriasis, unspecified Plan Patient is a 53-year-old gentleman came in today for his regular follow-up appointment Diabetes mellitus: Diet-controlled hemoglobin A1c came back at 6.5 at recent labs Blood pressure is 136/74 patient is prehypertensive, we will continue to monitor LDL came back at 141 we talked about starting medication small dose, we will be labs again next time and if it is still above 100 we will start medication Had colonoscopy done by Dr. Judd 1 tubular adenoma was found patient also have a family history of colon cancer Next colonoscopy will be in for years that is 2028 Psoriatic rash stable Follow-up 4 months labs are needed before visit with fasting Orders: Orders Hemoglobin A1c 3 Months D12.6 - Benign neoplasm of colon, unspecified, E11.9 - Type 2 diabetes mellitus without complications, E78.9 - Disorder of lipoprotein metabolism, unspecified, L40.9 - Psoriasis, unspecified, R79.89 - Other specified abnormal findings of blood chemistry Comprehensive [place]. Panel Fast 3 Months D12.6 - Benign neoplasm of colon, unspecified, E11.9 - Type 2 diabetes mellitus without complications, E78.9 - Disorder of lipoprotein metabolism, unspecified, L40.9 - Psoriasis, unspecified, R79.89 - Other specified abnormal findings of blood chemistry Lipid Panel 3 Months D12.6 - Benign neoplasm of colon, unspecified, E11.9 - Type 2 diabetes mellitus without complications, E78.9 - Disorder of lipoprotein metabolism, unspecified, L40.9 - Psoriasis, unspecified, R79.89 - Other specified abnormal findings of blood chemistry Complete Blood Count Auto Diff 3 Months D12.6 - Benign neoplasm of colon, unspecified, E11.9 - Type 2 diabetes mellitus without complications, E78.9 - Disorder of lipoprotein metabolism, unspecified, L40.9 - Psoriasis, unspecified, R79.89 - Other specified abnormal findings of blood chemistry Microalbumin, Random (w Creat) 3 Months D12.6 - Benign neoplasm of colon, unspecified, E11.9 - Type 2 diabetes mellitus without complications, E78.9 - Disorder of lipoprotein metabolism, unspecified, L40.9 - Psoriasis, unspecified, R79.89 - Other specified abnormal findings of blood chemistry Coding Level of Care Code Est Pt Level 4 (29238) Diagnoses Type 2 diabetes mellitus without complication, without long-term current use of insulin E11.9 Diabetes mellitus complication status: without complication Diabetes mellitus custodial insulin use: without custodial use Lipid disorder E78.9 LFT elevation R79.89 Tubular adenoma of colon D12.6 Psoriasis L40.9 Additional Codes MARCO-7 Assessment Billing - MARCO-7 Assessment Tool: MARCO-7 Assessment 17204 ([id number])
== END 2023-09-18 12:00 | disposition home or self-care (01) ==
PROVIDERS: PCP Internal Medicine; Visit Provider Internal Medicine
DX: E11.9 Type 2 diabetes mellitus without complications (principal); E78.9 Disorder of lipoprotein metabolism, unspecified; R79.89 Other specified abnormal findings of blood chemistry; D12.6 Benign neoplasm of colon, unspecified; L40.9 Psoriasis, unspecified
CPT/HCPCS: 99214

== ENCOUNTER 2024-01-08 08:47 | Outpatient (REF) | payer OTHER, SELFPAY ==
[2024-01-08 10:08] LABS: MANUAL DIFF FLAG NO
[2024-01-08 10:16] LABS: Basophils Percent Auto 0.7 % (0-2); Eosinophils Absolute Auto 0.1 X10*3/uL (0.0-0.4); Eosinophils Percent Auto 1.9 % (0-4); Hematocrit 41.5 % (42.0-52.0); Hemoglobin 13.8 g/dl (14.0-18.0); Imm Gran Abs Auto 0.02 X10*3/uL (0.00-0.03); Imm Gran Pct Auto 0.3 % (0.0-0.4); Lymphocytes Absolute Auto 1.6 X10*3/uL (1.2-4.9); Lymphocytes Percent Auto 26.9 % (20-40); Mean Corpuscular HGB Conc 33.3 g/dl (31.0-36.0); Mean Corpuscular Hemoglobin 29.1 pg (27.0-33.0); Mean Corpuscular Volume 87.4 fL (80.0-98.0); Mean Platelet Volume 9.8 fL (9.4-12.4); Monocytes Absolute Auto 0.5 X10*3/uL (0.1-1.2); Monocytes Percent Auto 8.4 % (2-11); Neutrophils Absolute Auto 3.6 x10*3/uL (2.0-8.3); Neutrophils Percent Auto 61.8 % (45-73); Platelet Count 262 X10*3/uL (160-400); Red Blood Count 4.75 X10*6/uL (4.60-5.80); Red Cell Distribution Width 13.6 % (11.0-16.0); White Blood Count 5.8 X10*3/uL (4.8-10.8)
[2024-01-08 10:21] LABS: Estimated Average Glucose 143 mg/dL; Hemoglobin A1c % 6.6 % (<6.0)
[2024-01-08 10:26] LABS: Alanine Aminotransferase 29 U/L (0-40); Albumin Level 4.3 g/dL (3.5-5.0); Alkaline Phosphatase 87 U/L (39-117); Anion Gap 10 (12-20); Aspartate Amino Transferase 25 U/L (5-37); Bilirubin Total 1.2 mg/dL (0.0-1.0); Blood Urea Nitrogen 19 mg/dL (9-16); Calcium 9.4 mg/dL (8.4-10.2); Carbon Dioxide 26 mmol/L (22-29); Chloride 105 mmol/L (96-108); Cholesterol 187 mg/dL (<200); Estimated Glomerular Filt Rate > 60; Glucose Fasting 154 mg/dL (60-99); HDL Cholesterol 43 mg/dL (>40); LDL Cholesterol Calculated 132 mg/dL (<100); Potassium 4.1 mmol/L (3.3-5.1); Sodium 137 mmol/L (135-145); Total Protein 7.4 g/dL (6.5-8.0); Triglycerides 61 mg/dL (<150)
[2024-01-08 11:17] LABS: Creatinine Urine 199.16 mg/dL
== END 2024-01-08 08:48 | disposition home or self-care (01) ==
LOC: HO.HMGCLDS 08:47
PROVIDERS: PCP Internal Medicine; Visit Provider Internal Medicine
DX: E11.9 Type 2 diabetes mellitus without complications (principal); E78.9 Disorder of lipoprotein metabolism, unspecified; R79.89 Other specified abnormal findings of blood chemistry; D12.6 Benign neoplasm of colon, unspecified; L40.9 Psoriasis, unspecified
CPT/HCPCS: 36415; 80053; 80061; 82043; 82570; 83036; 85025

== ENCOUNTER 2024-01-10 08:40 | Outpatient (AMB) | payer OTHER, SELFPAY ==
--- NOTE | 2024-01-10 08:52 | A.OFFPC_ITS ---
Vital Signs 01/10/24 08:54 Height 6 ft 1 in Weight 208 lb BMI 27.4 BP 130/90 H Blood Pressure Location Rt brachial Position Sitting Pulse 67 Pulse Source Pulse Oximeter Pulse Oximetry (%) 97 Oxygen Delivery Method Room Air Intake Visit Reasons: Annual PE Allergies No Known Allergies [No Known Allergies*] Allergy (Verified 01/10/24 08:54) Medication List - Last Reconciled 01/10/24 by Magda Woodard MD clobetasol 0.05% 1 appl topical BID 2 weeks Tobacco use date assessed: 09/18/23 Dental Screening Dental Screen Date: 09/18/23 HPI Annual PE HPI Details Patient is a 53-year-old gentleman came in today for his physical exam appointment Diabetes mellitus: Diet-controlled labs done recently shows hemoglobin A1c of 6.6% Blood pressure is 130/90, considering patient is diabetic I would recommend small dose of lisinopril, patient agreed to take that 5 mg of lisinopril sent, patient was ins tructed to stop the medication if he developed any kind of reaction to medicine. And get back to me Had colonoscopy done by Dr. Judd 1 tubular adenoma was found patient also have a family history of colon cancer Next colonoscopy will be in for years that is 2028 Psoriatic rash stable Follow-up 4 months labs to be done before visit [facility] Medical History Sessile serrated polyp of colon Tubular adenoma of colon Psoriasis Lipid disorder Diabetes Surgical History Hx of colonoscopy No pertinent past surgical history Family History Brother Substance use disorder Social History Housing: Apartment Patient Tobacco Use Status: Never used Tobacco e-Cigarette/Vaping Use: Never Used Second Hand Smoke Exposure: No service: No Current occupational status: employed Current occupation: [employer] Cognitive needs: No Hearing needs: No Vision needs: No Questionnaire Thrive Questionnaire Date Thrive assessed: 09/18/23 MARCO-7 AMB Questionnaire AMRCO-7 Date MARCO - 7 assessed: 09/18/23 Source: Developed by Drs. Toy Walls, Lashae Mtz, Estiven Daugherty and colleagues, with an educational jewels from [employer]. Review of Systems Const Denies chills, Denies fever(s) and Denies headache(s) Eyes Denies blurry vision ENT Denies headache(s), Denies nasal discharge, Denies nasal obstruction, Denies odynophagia and Denies sinus pain Card Denies chest pain at rest and Denies chest pain with activity Resp Denies cough and Denies hemoptysis GI Denies diarrhea, Denies odynophagia, Denies vomiting and Denies hematemesis Reports as per HPI Musc Denies abnormal gait Skin/Breast Reports as per HPI Neuro Denies Neuro-related abnormal movements, Denies Abnormal speech present, Denies abnormal gait, Denies headache(s) and Denies Sensory deficit (Neuro) Psych Denies mood swings and Denies paranoia Endo Reports as per HPI Soren/Lymph Reports as per HPI Aller/Immun Reports as per HPI Physical exam (Primary Care) Vital Signs: Last Vital Signs Pulse 67 01/10/24 08:54 BP 130/90 H 01/10/24 08:54 Pulse Ox 97 01/10/24 08:54 Oxygen Delivery Method Room Air 01/10/24 08:54 BMI result Body Mass Index 27.4 Tobacco/Smoking Status: Tobacco use Status Tobacco use date assessed 09/18/23 01/10/24 08:53 Patient Tobacco Use Status Never used Tobacco 01/10/24 08:53 e-Cigarette/Vaping Use Never Used 01/10/24 08:53 Thrive Assessment: Date of Thrive Assessment Date Thrive assessed 09/18/23 01/10/24 08:53 Const General: cooperative, comfortable and no acute distress Orientation/consciousness: patient oriented x3 HENMT Head: Yes normocephalic and Yes atraumatic Eyes General: appearance normal, both eyes and all related structures Pupils: Equal, round and reactive pupils present EOM: EOMs intact bilaterally Neck Neck: Yes supple and No lymphadenopathy Thyroid: Thyroid normal Lymphatic: no lymphadenopathy noted Resp Effort & Inspection: normal respiratory effort and able to speak in complete sentences Auscultation: clear to auscultation bilaterally Cardio Heart sounds: S1 normal heart sound present and S2 normal heart sound present GI Palpation (GI): Soft to palpation and nontender Auscultation: normal bowel sounds General: Yes no CVA tenderness Back/Spine/Pelvis Back: no CVA tenderness Skin General skin exam: elasticity normal and turgor normal Neuro General: patient oriented x3 and gait normal Cranial nerves: Yes Equal, round and reactive pupils present Speech: No Abnormal speech present Sensory Exam: No Sensory deficit (Neuro) Coordination: tandem gait normal and Romberg test negative Extrem General: Yes normal exam except as noted and No edema Assessment and Plan Assessment & Plan (1) Encounter for general adult medical examination with abnormal findings: Code(s): Z00.01 - Encounter for general adult medical examination with abnormal findings (2) Type 2 diabetes mellitus: Code(s): E11.9 - Type 2 diabetes mellitus without complications Qualifiers: Diabetes mellitus penitentiary insulin use: without penitentiary use Diabetes mellitus complication status: without complication Qualified Code(s): E11.9 - Type 2 diabetes mellitus without complications (3) Diastolic hypertension: Code(s): I10 - Essential (primary) hypertension (4) Lipid disorder: Code(s): E78.9 - Disorder of lipoprotein metabolism, unspecified Plan Patient is a 53-year-old gentleman came in today for his physical exam appointment Diabetes mellitus: Diet-controlled labs done recently shows hemoglobin A1c of 6.6% Blood pressure is 130/90, considering patient is diabetic I would recommend small dose of lisinopril, patient agreed to take that 5 mg of lisinopril sent, patient was instructed to stop the medication if he developed any kind of reaction to medicine. And get back to me Had colonoscopy done by Dr. Judd 1 tubular adenoma was found patient also have a family history of colon cancer Next colonoscopy will be in for years that is 2028 Psoriatic rash stable Follow-up 4 months labs to be done before visit Orders: Orders Complete Blood Count Auto Diff Today E11.9 - Type 2 diabetes mellitus without complications, E78.9 - Disorder of lipoprotein metabolism, unspecified, Z00.01 - Encounter for general adult medical examination with abnormal findings Vitamin D 25-OH (D2 and D3) Today E11.9 - Type 2 diabetes mellitus without complications, E78.9 - Disorder of lipoprotein metabolism, unspecified, Z00.01 - Encounter for general adult medical examination with abnormal findings TSH reflex Free T4 Today E11.9 - Type 2 diabetes mellitus without complications, E78.9 - Disorder of lipoprotein metabolism, unspecified, Z00.01 - Encounter for general adult medical examination with abnormal findings Comprehensive [place]. Panel Fast Today E11.9 - Type 2 diabetes mellitus without complications, E78.9 - Disorder of lipoprotein metabolism, unspecified, Z00.01 - Encounter for general adult medical examination with abnormal findings Lipid Panel Today E11.9 - Type 2 diabetes mellitus without complications, E78.9 - Disorder of lipoprotein metabolism, unspecified, Z00.01 - Encounter for general adult medical examination with abnormal findings Medications: New lisinopril 5 mg PO DAILY 90 tabs 0RF Coding Level of Care Code Est Pt Level 3 (18877) Est Pt Prev Care 40-64y(02395) Diagnoses Encounter for general adult medical examination with abnormal findings Z00.01 Type 2 diabetes mellitus without complication, without long-term current use of insulin E11.9 Diabetes mellitus terminal system operator insulin use: without penitentiary use Diabetes mellitus complication status: without complication Diastolic hypertension I10 Lipid disorder E78.9
[2024-01-10 08:54] VITALS: BP 130/90; PULSE 67; O2SAT 97; BMI 27.4
== END 2024-01-10 09:19 | disposition home or self-care (01) ==
PROVIDERS: PCP Internal Medicine; Visit Provider Internal Medicine
DX: Z00.01 Encounter for general adult medical examination with abnormal findings (principal); E11.9 Type 2 diabetes mellitus without complications; I10 Essential (primary) hypertension; E78.9 Disorder of lipoprotein metabolism, unspecified
CPT/HCPCS: 99213; 99396

== ENCOUNTER 2024-05-11 08:54 | Outpatient (REF) | payer OTHER, SELFPAY ==
[2024-05-11 10:07] LABS: MANUAL DIFF FLAG NO
[2024-05-11 10:16] LABS: Basophils Percent Auto 0.7 % (0-2); Eosinophils Percent Auto 0.7 % (0-4); Hematocrit 39.2 % (42.0-52.0); Hemoglobin 13.2 g/dl (14.0-18.0); Imm Gran Abs Auto 0.01 X10*3/uL (0.00-0.03); Imm Gran Pct Auto 0.2 % (0.0-0.4); Lymphocytes Absolute Auto 1.3 X10*3/uL (1.2-4.9); Lymphocytes Percent Auto 28.1 % (20-40); Mean Corpuscular HGB Conc 33.7 g/dl (31.0-36.0); Mean Corpuscular Hemoglobin 29.3 pg (27.0-33.0); Mean Corpuscular Volume 86.9 fL (80.0-98.0); Mean Platelet Volume 9.8 fL (9.4-12.4); Monocytes Absolute Auto 0.5 X10*3/uL (0.1-1.2); Neutrophils Absolute Auto 2.6 x10*3/uL (2.0-8.3); Neutrophils Percent Auto 58.3 % (45-73); Platelet Count 218 X10*3/uL (160-400); Red Blood Count 4.51 X10*6/uL (4.60-5.80); Red Cell Distribution Width 13.2 % (11.0-16.0); White Blood Count 4.5 X10*3/uL (4.8-10.8)
[2024-05-11 11:28] LABS: Alanine Aminotransferase 24 U/L (0-40); Albumin Level 4.1 g/dL (3.5-5.0); Alkaline Phosphatase 101 U/L (39-117); Anion Gap 12 (12-20); Aspartate Amino Transferase 23 U/L (5-37); Bilirubin Total 1.1 mg/dL (0.0-1.0); Blood Urea Nitrogen 8 mg/dL (9-16); Calcium 9.2 mg/dL (8.4-10.2); Carbon Dioxide 27 mmol/L (22-29); Chloride 104 mmol/L (96-108); Cholesterol 168 mg/dL (<200); Estimated Glomerular Filt Rate > 60; Glucose Fasting 121 mg/dL (60-99); HDL Cholesterol 35 mg/dL (>40); LDL Cholesterol Calculated 115 mg/dL (<100); Potassium 3.9 mmol/L (3.3-5.1); Sodium 139 mmol/L (135-145); Total Protein 7.2 g/dL (6.5-8.0); Triglycerides 92 mg/dL (<150)
[2024-05-11 11:32] LABS: TSH reflex Free T4 2.15 uIU/mL (0.32-4.0)
[2024-05-15 16:14] LABS: Vitamin D 25-OH, D2 <4 ng/mL; Vitamin D 25-OH, D3 30 ng/mL; Vitamin D 25-OH, Total 30 ng/mL (30-100)
== END 2024-05-11 08:55 | disposition home or self-care (01) ==
LOC: HO.HMGCLDS 08:54
PROVIDERS: PCP Internal Medicine; Visit Provider Internal Medicine
DX: Z00.01 Encounter for general adult medical examination with abnormal findings (principal); E78.9 Disorder of lipoprotein metabolism, unspecified; E11.9 Type 2 diabetes mellitus without complications
CPT/HCPCS: 36415; 80053; 80061; 82306; 84443; 85025

== ENCOUNTER 2024-05-12 09:10 | Outpatient (AMB) | payer OTHER, SELFPAY ==
[2024-05-12 09:26] VITALS: BP 138/78; PULSE 80; O2SAT 98; BMI 28.0
--- NOTE | 2024-05-12 09:26 | MHC.PC.OV ---
Vital Signs 05/12/24 09:26 Height 6 ft 1 in Weight 212 lb BMI 28.0 BP 138/78 Blood Pressure Location Rt brachial Position Sitting Pulse 80 Pulse Source Pulse Oximeter Pulse Oximetry (%) 98 Oxygen Delivery Method Room Air Intake Visit Reasons: 4 month follow up Allergies No Known Allergies [No Known Allergies*] Allergy (Verified 05/12/24 09:26) Medication List - Last Reconciled 05/12/24 by Magda Woodard MD clobetasol 0.05% 1 appl topical BID 2 weeks lisinopril 5 mg PO DAILY Tobacco use date assessed: 05/12/24 Dental Screening Dental Screen Date: 05/12/24 Did you have a dental visit in the last 12 months?: Yes Did you have a dental problem in the last 6 months where you did not have access to dental care?: No Was dental information given to patient?: Patient has dentist HPI 4 month follow up HPI Details Patient is a 53-year-old gentleman with prehypertension and diabetes So far taking no medications Blood pressure is running in 120s systolic at home Patient had DOT physical and at that visit it was in 120s as well as per patient Labs done recently reviewed Mild elevation in LFT but stable Hemoglobin has dropped further to 13.2 with microcytic indices Going back checking his colonoscopy done in 2022 I do see that he has hemorrhoids Even though does not have constipation He is taking vitamin but does not know if it has iron He will check We will continue to monitor hemoglobin, I have added ferritin and B12 level as well If declined further patient will need to go on iron supplement Hemoglobin A1c came back at 7.0, it was 6.6 early January of this year Patient is trying to control his diet, so far he is not on any medication. If his hemoglobin A1c went above 7 next visit we will start the medication. He is aware of diabetic diet [facility] Medical History Sessile serrated polyp of colon Tubular adenoma of colon Psoriasis Lipid disorder Diabetes Surgical History Hx of colonoscopy No pertinent past surgical history Family History Brother Substance use disorder Social History Housing: Apartment Patient Tobacco Use Status: Never used Tobacco e-Cigarette/Vaping Use: Never Used Second Hand Smoke Exposure: No service: No Current occupational status: employed Current occupation: [employer] Cognitive needs: No Hearing needs: No Vision needs: No Questionnaire PHQ-9 Over the last 2 weeks, how often have you been bothered by any of the following problems? 1. Little interest or pleasure in doing things: not at all 2. Feeling down, depressed, or hopeless: not at all 3. Trouble falling or staying asleep, or sleeping too much: not at all 4. Feeling tired or having little energy: not at all 5. Poor appetite or overeating: not at all 6. Feeling bad about yourself - or that you are a failure or have let yourself or your family down: not at all 7. Trouble concentrating on things, such as reading the newspaper or watching television: not at all 8. Moving or speaking so slowly that other people could have noticed. Or the opposite - being so fidgety or restless that you have been moving around a lot more than usual: not at all 9. Thoughts that you would be better off or of hurting yourself in some way: not at all Total score: 0 Depression Screening Interpretation: Negative Depression Screening Done: Yes 00701 - PHQ-9 Billing: Yes Source: Developed by Drs. Toy Walls, Lashae Mtz, Estiven Daugherty and colleagues, with an educational jewels from [employer]. Thrive Questionnaire Date Thrive assessed: 05/12/24 I am a: Patient What is your living situation today?: I have a steady place to live Within the past 12 months, did the food you bought not last and you didn't have the money to get more?: Never true Within the past 12 months, did you worry whether your food would run out before you got money to buy more?: Never true Do you have trouble paying for medicines?: No Do you have trouble getting transportation to medical appointments?: No Do you have trouble paying your heating and electricity bill?: No Do you have trouble taking care of your child, family member or friend?: No Do you have trouble with day-to-day activities such as bathing, preparing meals, shopping, managing finances, etc.?: No Are you currently unemployed and looking for a job?: No Are you interested in more education?: No Please select the resources that you would like help with: None Currently or been in a relationship where the following occur: No concerns reported THRIVE Score: 0 AUDIT C Alcohol Use Questionnaire (AUDIT-C) 1. How often do you have a drink containing alcohol?: Monthly or less 2. How many drinks containing alcohol do you have on a typical day when you are drinking?: 1 or 2 3. How often do you have six or more drinks on one occasion?: Never Total Score: 1 Score Reviewed/Action Taken: Yes MARCO-7 AMB Questionnaire MARCO-7 Date MARCO - 7 assessed: 05/12/24 Feeling nervous, anxious, or on edge: 0 = Not at all Not being able to stop or control worryin = Not at all Worrying too much about different things: 0 = Not at all Trouble relaxin = Not at all Being so restless that it is hard to sit still: 0 = Not at all Becoming easily annoyed or irritable: 0 = Not at all Feeling afraid as if something awful might happen: 0 = Not at all Total MARCO-7 score (0-4 normal; 5-9 mild; 10-14 moderate; 15-21 severe): 0 Source: Developed by Drs. Toy Walls, Lashae Mtz, Estiven Daugherty and colleagues, with an educational jewels from [employer]. MARCO-7 Assessment Billing MARCO-7 Assessment Tool: MARCO-7 Assessment 21512 Review of Systems Const Denies chills and Denies fever(s) ENT Denies epistaxis and Denies nasal discharge Card Denies chest pain Resp Denies chest congestion, Denies cough and Denies hemoptysis GI Denies diarrhea and Denies nausea Skin/Breast Denies rash Neuro Reports no additional complaints Psych Reports no additional complaints Endo Reports no additional complaints Physical exam (Primary Care) Vital Signs: Last Vital Signs Pulse 80 05/12/24 09:26 BP 138/78 05/12/24 09:26 Pulse Ox 98 05/12/24 09:26 Oxygen Delivery Method Room Air 05/12/24 09:26 BMI result Body Mass Index 28.0 Tobacco/Smoking Status: Tobacco use Status Tobacco use date assessed 05/12/24 05/12/24 09:27 Patient Tobacco Use Status Never used Tobacco 05/12/24 09:27 e-Cigarette/Vaping Use Never Used 05/12/24 09:27 PHQ-9: PHQ-9 Score PHQ-9: Total score 0 05/12/24 09:27 Depression Screening Interpretation: Negative Thrive Assessment: Date of Thrive Assessment Date Thrive assessed 05/12/24 05/12/24 09:27 Currently or been in a relationship where the following occur: No concerns reported Const General: cooperative, comfortable and no acute distress Orientation/consciousness: patient oriented x3 HENMT Head: Yes normocephalic Eyes General: appearance normal, both eyes and all related structures Neck Neck: Yes supple Resp Effort & Inspection: normal respiratory effort, no cough and no stridor Cardio Rhythm: regular rhythm Heart sounds: S1 normal heart sound present and S2 normal heart sound present Skin General skin exam: turgor normal Neuro General: patient oriented x3, tone normal and moves all extremities Extrem Right lower extremity: no edema Left lower extremity: no edema Coding Level of Care Code Est Pt Level 4 (35453) Diagnoses Type 2 diabetes mellitus without complication, without long-term current use of insulin E11.9 Diabetes mellitus complication status: without complication Diabetes mellitus intermediate project manager insulin use: without intermediate project manager use Lipid disorder E78.9 LFT elevation R79.89 Psoriasis L40.9 Additional Codes MARCO-7 Assessment Billing - MARCO-7 Assessment Tool: MARCO-7 Assessment 03898 ([id number]) Assessment & Plan Assessment & Plan (1) Type 2 diabetes mellitus: Code(s): E11.9 - Type 2 diabetes mellitus without complications Category: Medical Qualifiers: Diabetes mellitus complication status: without complication Diabetes mellitus intermediate project manager insulin use: without nursing home use Qualified Code(s): E11.9 - Type 2 diabetes mellitus without complications (2) Lipid disorder: Code(s): E78.9 - Disorder of lipoprotein metabolism, unspecified Category: Medical (3) LFT elevation: Code(s): R79.89 - Other specified abnormal findings of blood chemistry Category: Medical (4) Psoriasis: Code(s): L40.9 - Psoriasis, unspecified Category: Medical Plan Patient is a 53-year-old gentleman with prehypertension and diabetes So far taking no medications Blood pressure is running in 120s systolic at home Patient had DOT physical and at that visit it was in 120s as well as per patient Labs done recently reviewed Mild elevation in LFT but stable Hemoglobin has dropped further to 13.2 with microcytic indices Going back checking his colonoscopy done in 2022 I do see that he has hemorrhoids Even though does not have constipation He is taking vitamin but does not know if it has iron He will check We will continue to monitor hemoglobin, I have added ferritin and B12 level as well If declined further patient will need to go on iron supplement Hemoglobin A1c came back at 7.0, it was 6.6 early January of this year Patient is trying to control his diet, so far he is not on any medication. If his hemoglobin A1c went above 7 next visit we will start the medication. He is aware of diabetic diet Psoriasis is responding to steroid cream, refill sent Orders: Orders Complete Blood Count Auto Diff 3 Months E11.9 - Type 2 diabetes mellitus without complications, E78.9 - Disorder of lipoprotein metabolism, unspecified, L40.9 - Psoriasis, unspecified, R79.89 - Other specified abnormal findings of blood chemistry Hemoglobin A1c 3 Months E11.9 - Type 2 diabetes mellitus without complications, E78.9 - Disorder of lipoprotein metabolism, unspecified, L40.9 - Psoriasis, unspecified, R79.89 - Other specified abnormal findings of blood chemistry Comprehensive Met. Panel 3 Months E11.9 - Type 2 diabetes mellitus without complications, E78.9 - Disorder of lipoprotein metabolism, unspecified, L40.9 - Psoriasis, unspecified, R79.89 - Other specified abnormal findings of blood chemistry Microalbumin, Random (w Creat) 3 Months E11.9 - Type 2 diabetes mellitus without complications, E78.9 - Disorder of lipoprotein metabolism, unspecified, L40.9 - Psoriasis, unspecified, R79.89 - Other specified abnormal findings of blood chemistry LDL Cholesterol Direct 3 Months E11.9 - Type 2 diabetes mellitus without complications, E78.9 - Disorder of lipoprotein metabolism, unspecified, L40.9 - Psoriasis, unspecified, R79.89 - Other specified abnormal findings of blood chemistry Ferritin 3 Months E11.9 - Type 2 diabetes mellitus without complications, E78.9 - Disorder of lipoprotein metabolism, unspecified, L40.9 - Psoriasis, unspecified, R79.89 - Other specified abnormal findings of blood chemistry Vitamin B12 3 Months E11.9 - Type 2 diabetes mellitus without complications, E78.9 - Disorder of lipoprotein metabolism, unspecified, L40.9 - Psoriasis, unspecified, R79.89 - Other specified abnormal findings of blood chemistry Medications: Refilled clobetasol 0.05% 1 appl topical BID 2 weeks 60 grams 3RF L40.9 - Psoriasis, unspecified Discontinued lisinopril Discontinued Reason: No Longer Medically Relevant 5 mg PO DAILY 90 tabs 0RF
== END 2024-05-12 10:27 | disposition home or self-care (01) ==
LOC: HO.HMCC 09:11
PROVIDERS: PCP Internal Medicine; Visit Provider Internal Medicine
DX: E11.9 Type 2 diabetes mellitus without complications (principal); E78.9 Disorder of lipoprotein metabolism, unspecified; R79.89 Other specified abnormal findings of blood chemistry; L40.9 Psoriasis, unspecified; Z13.9 Encounter for screening, unspecified

== ENCOUNTER → 2024-05-12 09:10 | Outpatient (BNVA) | payer OTHER, SELFPAY | PROVIDERS: PCP Internal Medicine; Visit Provider Internal Medicine | DX: E11.9 Type 2 diabetes mellitus without complications (principal); E78.9 Disorder of lipoprotein metabolism, unspecified; R79.89 Other specified abnormal findings of blood chemistry; L40.9 Psoriasis, unspecified | CPT/HCPCS: 83036; 96127 ==

== ENCOUNTER 2024-09-07 08:48 | Outpatient (REF) | payer OTHER, SELFPAY ==
[2024-09-07 10:20] LABS: MANUAL DIFF FLAG NO
[2024-09-07 10:33] LABS: Basophils Percent Auto 0.6 % (0-2); Eosinophils Absolute Auto 0.1 X10*3/uL (0.0-0.4); Eosinophils Percent Auto 1.7 % (0-4); Hematocrit 40.8 % (42.0-52.0); Hemoglobin 13.6 g/dl (14.0-18.0); Imm Gran Abs Auto 0.02 X10*3/uL (0.00-0.03); Imm Gran Pct Auto 0.4 % (0.0-0.4); Lymphocytes Absolute Auto 1.3 X10*3/uL (1.2-4.9); Lymphocytes Percent Auto 23.9 % (20-40); Mean Corpuscular HGB Conc 33.3 g/dl (31.0-36.0); Mean Corpuscular Hemoglobin 28.9 pg (27.0-33.0); Mean Corpuscular Volume 86.6 fL (80.0-98.0); Mean Platelet Volume 10.2 fL (9.4-12.4); Monocytes Absolute Auto 0.4 X10*3/uL (0.1-1.2); Neutrophils Absolute Auto 3.4 x10*3/uL (2.0-8.3); Neutrophils Percent Auto 65.4 % (45-73); Platelet Count 240 X10*3/uL (160-400); Red Blood Count 4.71 X10*6/uL (4.60-5.80); White Blood Count 5.2 X10*3/uL (4.8-10.8)
[2024-09-07 10:48] LABS: Estimated Average Glucose 146 mg/dL; Hemoglobin A1C 175.4043 umol/L; Hemoglobin A1c % 6.7 % (<6.0); Total Hemoglobin (HGBA1C) 3495.7203 umol/L
[2024-09-07 11:12] LABS: Alanine Aminotransferase 28 U/L (0-40); Albumin Level 4.3 g/dL (3.5-5.0); Alkaline Phosphatase 93 U/L (39-117); Anion Gap 12 (12-20); Aspartate Amino Transferase 28 U/L (5-37); Bilirubin Total 1.1 mg/dL (0.0-1.0); Blood Urea Nitrogen 16 mg/dL (9-16); Carbon Dioxide 26 mmol/L (22-29); Chloride 105 mmol/L (96-108); Estimated Glomerular Filt Rate > 60; Glucose Random 138 mg/dL (60-115); Potassium 4.5 mmol/L (3.3-5.1); Sodium 138 mmol/L (135-145); Total Protein 7.8 g/dL (6.5-8.0)
[2024-09-07 11:17] LABS: Ferritin 389 ng/mL (20-250)
[2024-09-07 11:19] LABS: Vitamin B12 980 pg/mL (200-900)
[2024-09-07 12:07] LABS: Creatinine Urine 40.18 mg/dL; Microalbumin Urine < 5.0 mg/L
[2024-09-08 09:04] LABS: LDL Cholesterol Direct 135 mg/dL (<100)
== END 2024-09-07 08:49 | disposition home or self-care (01) ==
LOC: HO.HMGCLDS 08:48
PROVIDERS: PCP Internal Medicine; Visit Provider Internal Medicine
DX: E11.9 Type 2 diabetes mellitus without complications (principal); E78.9 Disorder of lipoprotein metabolism, unspecified; R79.89 Other specified abnormal findings of blood chemistry; L40.9 Psoriasis, unspecified
CPT/HCPCS: 36415; 80053; 82043; 82570; 82607; 82728; 83036; 83721; 85025

== ENCOUNTER 2024-09-08 10:55 | Outpatient (AMB) | payer OTHER, SELFPAY ==
[2024-09-08 10:58] VITALS: BP 128/76; PULSE 88; O2SAT 98; BMI 28.1
--- NOTE | 2024-09-08 10:58 | A.OFFPC_ITS ---
Vital Signs 09/08/24 10:58 Height 6 ft 1 in Weight 213 lb 6 oz BMI 28.1 BP 128/76 Blood Pressure Location Rt brachial Position Sitting Pulse 88 Pulse Source Pulse Oximeter Pulse Oximetry (%) 98 Oxygen Delivery Method Room Air Intake Visit Reasons: 4 Month f/u Allergies No Known Allergies [No Known Allergies*] Allergy (Verified 09/08/24 10:58) Medication List - Last Reconciled 09/08/24 by Magda Woodard MD clobetasol 0.05% 1 appl topical BID 2 weeks Tobacco use date assessed: 09/08/24 Dental Screening Dental Screen Date: 09/08/24 Did you have a dental visit in the last 12 months?: Yes Did you have a dental problem in the last 6 months where you did not have access to dental care?: No Was dental information given to patient?: Patient has dentist HPI 4 Month f/u HPI Details History - The patient is a 54 year old male pres enting with lab review and evaluation of elevated ferritin levels. - The patient has well-controlled Essent ial Hypertension with a recent blood pressure of 128/76 mmHg. - Type 2 Diabetes Mellitus is under good control with a recent decrease in Hemoglobin A1c to 6.7%. - An increase in LDL cholesterol to 135 mg/dL was noted. - Ferritin levels are elevated at 389 ng /mL, prompting evaluation for possible hemochromatosis. - The patient denies iron supplementatio n but has increased dietary intake of spinach and kale. - Family history includes diabetes on th e paternal side. Problem List - Essential Hypertension - Type 2 Diabetes Mellitus - Hypercholesterolemia - Elevated Ferritin - Possible Hemochromatosis Patient Instructions - Schedule the hemochromatosis gene test and follow up with a fabric worker leader as advised. - Maintain current diet and lifestyle ch anges, including monitoring of blood sugar and cholesterol levels. - Continue to avoid additional sugar int brian and refrain from adding sugar to coffee. - Follow the blood test schedule recomme nded, with a retest in two weeks for ferritin levels and recheck of Hemoglobin A1c in four months. - Watch for signs of iron overload and s [place] care if symptoms such as unexplained fatigue, joint pain, or skin discoloration occur. Review of Systems - General: No fever no chills - Neurological: No headaches no dizziness - Ear nose throat: No sore throat no hearing difficulty no ear pain - Cardiovascular: No syncope, no chest pain, no palpitations - Gastrointestinal: No nausea vomiting or diarrhea - Endocrine: No polyuria polydipsia no heat intolerance - Genitourinary: No dysuria , no blood in urine Physical Exam General: No acute distress HEENT: No acute findings Neck: Supple Respiratory system: Able to talk in full sentences, no audible wheeze cardiovascular: S1-S2 regular in rate and rhythm Gastrointestinal: No pain Extremities: No swelling 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 oriented x3 motor sensory intact Skin: Normal turgor PFSH Medical History Sessile serrated polyp of colon Tubular adenoma of colon Psoriasis Lipid disorder Diabetes Surgical History Hx of colonoscopy No pertinent past surgical history Family History Brother Substance use disorder Social History Housing: Apartment Patient Tobacco Use Status: Never used Tobacco e-Cigarette/Vaping Use: Never Used Second Hand Smoke Exposure: No service: No Current occupational status: employed Current occupation: [employer] Cognitive needs: No Hearing needs: No Vision needs: No Questionnaire PHQ-9 Over the last 2 weeks, how often have you been bothered by any of the following problems? 1. Little interest or pleasure in doing things: not at all 2. Feeling down, depressed, or hopeless: not at all 3. Trouble falling or staying asleep, or sleeping too much: not at all 4. Feeling tired or having little energy: not at all 5. Poor appetite or overeating: not at all 6. Feeling bad about yourself - or that you are a failure or have let yourself or your family down: not at all 7. Trouble concentrating on things, such as reading the newspaper or watching television: not at all 8. Moving or speaking so slowly that other people could have noticed. Or the opposite - being so fidgety or restless that you have been moving around a lot more than usual: not at all 9. Thoughts that you would be better off or of hurting yourself in some way: not at all Total score: 0 Depression Screening Interpretation: Negative Depression Screening Done: Yes 26584 - PHQ-9 Billing: Yes Source: Developed by Drs. Toy Walls, Lashae Mtz, Estiven Daugherty and colleagues, with an educational jewels from [employer]. Thrive Questionnaire Date Thrive assessed: 09/08/24 I am a: Patient What is your living situation today?: I have a steady place to live Within the past 12 months, did the food you bought not last and you didn't have the money to get more?: Never true Within the past 12 months, did you worry whether your food would run out before you got money to buy more?: Never true Do you have trouble paying for medicines?: No Do you have trouble getting transportation to medical appointments?: No Do you have trouble paying your heating and electricity bill?: No Do you have trouble taking care of your child, family member or friend?: No Do you have trouble with day-to-day activities such as bathing, preparing meals, shopping, managing finances, etc.?: No Are you currently unemployed and looking for a job?: No Are you interested in more education?: Yes Please select the resources that you would like help with: None Currently or been in a relationship where the following occur: No concerns reported THRIVE Score: 0 AUDIT C Alcohol Use Questionnaire (AUDIT-C) 1. How often do you have a drink containing alcohol?: Monthly or less 2. How many drinks containing alcohol do you have on a typical day when you are drinking?: 1 or 2 3. How often do you have six or more drinks on one occasion?: Never Total Score: 1 Score Reviewed/Action Taken: Yes MARCO-7 AMB Questionnaire MARCO-7 Date MARCO - 7 assessed: 09/08/24 Feeling nervous, anxious, or on edge: 0 = Not at all Not being able to stop or control worryin = Not at all Worrying too much about different things: 0 = Not at all Trouble relaxin = Not at all Being so restless that it is hard to sit still: 0 = Not at all Becoming easily annoyed or irritable: 0 = Not at all Feeling afraid as if something awful might happen: 0 = Not at all Total MARCO-7 score (0-4 normal; 5-9 mild; 10-14 moderate; 15-21 severe): 0 Source: Developed by Drs. Toy Walls, Lashae Mtz, Estiven Daugherty and colleagues, with an educational jewels from [employer]. MARCO-7 Assessment Billing MARCO-7 Assessment Tool: MARCO-7 Assessment 26510 Physical exam (Primary Care) Vital Signs: Last Vital Signs Pulse 88 09/08/24 10:58 BP 128/76 09/08/24 10:58 Pulse Ox 98 09/08/24 10:58 Oxygen Delivery Method Room Air 09/08/24 10:58 BMI result Body Mass Index 28.1 Tobacco/Smoking Status: Tobacco use Status Tobacco use date assessed 09/08/24 09/08/24 11:00 Patient Tobacco Use Status Never used Tobacco 09/08/24 11:00 e-Cigarette/Vaping Use Never Used 09/08/24 11:00 PHQ-9: PHQ-9 Score PHQ-9: Total score 0 09/08/24 11:25 Depression Screening Interpretation: Negative Thrive Assessment: Date of Thrive Assessment Date Thrive assessed 09/08/24 09/08/24 11:00 Currently or been in a relationship where the following occur: No concerns reported Coding Level of Care Code Est Pt Level 4 (59196) Diagnoses Elevated ferritin R79.89 Elevated vitamin B12 level R79.89 Type 2 diabetes mellitus without complication, without long-term current use of insulin E11.9 Diabetes mellitus technician terminal and repeater insulin use: without senior care use Diabetes mellitus complication status: without complication Lipid disorder E78.9 Psoriasis L40.9 Additional Codes MARCO-7 Assessment Billing - MARCO-7 Assessment Tool: MARCO-7 Assessment 53435 ([id number]) PHQ-9 - 21943 - PHQ-9 Billing: Yes ([id number]) Assessment & Plan Assessment & Plan (1) Elevated ferritin: Code(s): R79.89 - Other specified abnormal findings of blood chemistry Category: Medical (2) Elevated vitamin B12 level: Code(s): R79.89 - Other specified abnormal findings of blood chemistry Category: Medical (3) Type 2 diabetes mellitus: Code(s): E11.9 - Type 2 diabetes mellitus without complications Category: Medical Qualifiers: Diabetes mellitus senior care insulin use: without technician terminal and repeater use Diabetes mellitus complication status: without complication Qualified Code(s): E11.9 - Type 2 diabetes mellitus without complications (4) Lipid disorder: Code(s): E78.9 - Disorder of lipoprotein metabolism, unspecified Category: Medical (5) Psoriasis: Code(s): L40.9 - Psoriasis, unspecified Category: Medical Plan History - The patient is a 54 year old male presenting with lab review and evaluation of elevated ferritin levels. - The patient has well-controlled Essential Hypertension with a recent blood pressure of 128/76 mmHg. - Type 2 Diabetes Mellitus is under good control with a recent decrease in Hemoglobin A1c to 6.7%. - An increase in LDL cholesterol to 135 mg/dL was noted. - Ferritin levels are elevated at 389 ng/mL, prompting evaluation for possible hemochromatosis. - The patient denies iron supplementation but has increased dietary intake of spinach and kale. - Family history includes diabetes on the paternal side. Problem List - Essential Hypertension - Type 2 Diabetes Mellitus - Hypercholesterolemia - Elevated Ferritin - Possible Hemochromatosis Patient Instructions - Schedule the hemochromatosis gene test and follow up with a fabric worker leader as advised. - Maintain current diet and lifestyle changes, including monitoring of blood sugar and cholesterol levels. - Continue to avoid additional sugar intake and refrain from adding sugar to coffee. - Follow the blood test schedule recommended, with a retest in two weeks for ferritin levels and recheck of Hemoglobin A1c in four months. - Watch for signs of iron overload and seek care if symptoms such as unexplained fatigue, joint pain, or skin discoloration occur. Orders: Orders DNA Analysis Hemochromatosis Today R7.89 - Other specified abnormal findings of blood chemistry Ferritin 2 Weeks R79.89 - Other specified abnormal findings of blood chemistry Vitamin B12 Today R7.89 - Other specified abnormal findings of blood chemistry Comprehensive [place]. Panel Fast 3 Months E11.9 - Type 2 diabetes mellitus without complications, E78.9 - Disorder of lipoprotein metabolism, unspecified, L40.9 - Psoriasis, unspecified, R79.89 - Other specified abnormal findings of blood chemistry Vitamin D 25-OH (D2 and D3) 3 Months E11.9 - Type 2 diabetes mellitus without complications, E78.9 - Disorder of lipoprotein metabolism, unspecified, L40.9 - Psoriasis, unspecified, R79.89 - Other specified abnormal findings of blood chemistry Hemoglobin A1c 3 Months E11.9 - Type 2 diabetes mellitus without complications, E78.9 - Disorder of lipoprotein metabolism, unspecified, L40.9 - Psoriasis, unspecified, R79.89 - Other specified abnormal findings of blood chemistry Ferritin 3 Months E11.9 - Type 2 diabetes mellitus without complications, E78.9 - Disorder of lipoprotein metabolism, unspecified, L40.9 - Psoriasis, unspecified, R79.89 - Other specified abnormal findings of blood chemistry Complete Blood Count Auto Diff 3 Months E11.9 - Type 2 diabetes mellitus without complications, E78.9 - Disorder of lipoprotein metabolism, unspecified, L40.9 - Psoriasis, unspecified, R79.89 - Other specified abnormal findings of blood chemistry Lipid Panel 3 Months E11.9 - Type 2 diabetes mellitus without complications, E78.9 - Disorder of lipoprotein metabolism, unspecified, L40.9 - Psoriasis, unspecified, R79.89 - Other specified abnormal findings of blood chemistry Vitamin B12 3 Months E11.9 - Type 2 diabetes mellitus without complications, E78.9 - Disorder of lipoprotein metabolism, unspecified, L40.9 - Psoriasis, unspecified, R79.89 - Other specified abnormal findings of blood chemistry Referrals Hematology & Oncology Referral R79.89 - Other specified abnormal findings of blood chemistry
== END 2024-09-08 11:22 | disposition home or self-care (01) ==
PROVIDERS: PCP Internal Medicine; Visit Provider Internal Medicine
DX: R79.89 Other specified abnormal findings of blood chemistry (principal); E11.9 Type 2 diabetes mellitus without complications; E78.9 Disorder of lipoprotein metabolism, unspecified; L40.9 Psoriasis, unspecified

== ENCOUNTER → 2024-09-08 10:55 | Outpatient (BNVA) | payer OTHER, SELFPAY | PROVIDERS: PCP Internal Medicine; Visit Provider Internal Medicine | DX: R79.89 Other specified abnormal findings of blood chemistry (principal); E11.9 Type 2 diabetes mellitus without complications; E78.9 Disorder of lipoprotein metabolism, unspecified; L40.9 Psoriasis, unspecified | CPT/HCPCS: 96127 ==

== ENCOUNTER 2024-09-22 08:45 | Outpatient (REF) | payer OTHER, SELFPAY ==
[2024-09-22 11:09] LABS: Ferritin 308 ng/mL (20-250)
== END 2024-09-22 08:46 | disposition home or self-care (01) ==
LOC: HO.HMGCLDS 08:45
PROVIDERS: PCP Internal Medicine; Visit Provider Internal Medicine
DX: R79.89 Other specified abnormal findings of blood chemistry (principal)
CPT/HCPCS: 36415; 82728

== ENCOUNTER 2025-01-26 06:43 | Outpatient (REF) | payer OTHER, SELFPAY ==
[2025-01-26 10:36] LABS: MANUAL DIFF FLAG NO
[2025-01-26 10:38] LABS: Hematocrit 40.7 % (42.0-52.0); Hemoglobin 13.7 g/dl (14.0-18.0); Imm Gran Abs Auto 0.01 X10*3/uL (0.00-0.03); Imm Gran Pct Auto 0.2 % (0.0-0.4); Lymphocytes Absolute Auto 1.4 X10*3/uL (1.2-4.9); Mean Corpuscular HGB Conc 33.7 g/dl (31.0-36.0); Mean Corpuscular Hemoglobin 29.1 pg (27.0-33.0); Mean Corpuscular Volume 86.4 fL (80.0-98.0); NRBC Abs Auto 0.000 X10*3/uL (0.0-0.012); NRBC Pct Auto 0.0 /100WBC (0.0-0.2); Platelet Count 248 X10*3/uL (160-400); Red Blood Count 4.71 X10*6/uL (4.60-5.80); White Blood Count 5.0 X10*3/uL (4.8-10.8)
[2025-01-26 10:45] LABS: Hemoglobin A1C 187.2721 umol/L; Total Hemoglobin (HGBA1C) 3604.1403 umol/L
[2025-01-26 11:04] LABS: Alanine Aminotransferase 29 U/L (0-40); Albumin Level 4.5 g/dL (3.5-5.0); Alkaline Phosphatase 88 U/L (39-117); Anion Gap 10 (12-20); Aspartate Amino Transferase 32 U/L (5-37); Blood Urea Nitrogen 17 mg/dL (9-16); Calcium 8.8 mg/dL (8.4-10.2); Carbon Dioxide 26 mmol/L (22-29); Chloride 106 mmol/L (96-108); Cholesterol 195 mg/dL (<200); Estimated Glomerular Filt Rate > 60; HDL Cholesterol 40 mg/dL (>40); Potassium 4.3 mmol/L (3.3-5.1); Sodium 138 mmol/L (135-145); Total Protein 7.6 g/dL (6.5-8.0); Triglycerides 67 mg/dL (<150)
[2025-01-26 11:16] LABS: Vitamin B12 942 pg/mL (200-900)
[2025-01-26 11:21] LABS: Ferritin 353 ng/mL (20-250)
[2025-01-30 15:38] LABS: Vitamin D 25-OH, D2 <4 ng/mL; Vitamin D 25-OH, D3 42 ng/mL; Vitamin D 25-OH, Total 42 ng/mL (30-100)
== END 2025-01-26 06:44 | disposition home or self-care (01) ==
LOC: HO.HMGCLDS 06:43
PROVIDERS: PCP Internal Medicine; Visit Provider Internal Medicine
DX: R79.89 Other specified abnormal findings of blood chemistry (principal); E78.9 Disorder of lipoprotein metabolism, unspecified; L40.9 Psoriasis, unspecified; E11.9 Type 2 diabetes mellitus without complications
CPT/HCPCS: 36415; 80053; 80061; 82306; 82607; 82728; 83036; 85025

== ENCOUNTER 2025-01-27 10:09 | Outpatient (AMB) | payer OTHER, SELFPAY ==
[2025-01-27 10:12] VITALS: BP 138/82; PULSE 83; O2SAT 97; BMI 27.2
--- NOTE | 2025-01-27 10:12 | A.OFFPC_ITS ---
Vital Signs 01/27/25 10:12 Height 6 ft 1 in Weight 206 lb BMI 27.2 BP 138/82 Blood Pressure Location Lt brachial Position Sitting Pulse 83 Pulse Source Pulse Oximeter Pulse Oximetry (%) 97 Oxygen Delivery Method Room Air Intake Visit Reasons: Annual PE Harness Puller Required: No Accompanied by: Self / Same As Patient Allergies No Known Allergies (No Known Allergies*) Allergy (Verified 01/27/25 10:13) Medication List - Last Reconciled 01/27/25 by Magda Woodard MD clobetasol 0.05% 1 appl topical BID 2 weeks Tobacco use date assessed: 09/08/24 Dental Screening Dental Screen Date: 09/08/24 HPI Annual PE HPI Details Chief Complaint The patient presents for a routine physical exam and review of recent laboratory findings. History - The patient is a 54-year-old male pres enting with concerns regarding his laboratory results and a previous history of Lyme disease. - He reports previous high ferritin leve ls, which have now decreased, and a concern about a pending hemochromatosis gene test which was ordered but not completed. - The patient recalls a past occurrence of Lyme disease diagnosed in approximately 2013, associated with knee stiffness and joint pain but reports these symptoms resolved after treatment. - Current mild joint discomfort and skin changes (eczema) are noted but are not significant at present. Medical History: - History of Lyme disease treated succes sfully post-diagnosis in 2013. - Eczema, currently managed with topical treatment. - DM - elevated b12 - elevated ferritin - Lft - slight anemia Diagnostic Results: - Labs: Hemoglobin stable at 13.7 (sligh tly low), fasting sugar 157 with A1c of 6.9, ferritin at 353, total bilirubin at 1.5, LDL at 142, significantly high B12 levels at 942 (no supplements taken). Vitamin D results pending. Health Maintenance - Colonoscopy performed last year; next one recommended in 2028 due to family history. - Tetanus vaccine discussed and acknowle dged as necessary. Medications - Current topical cream for eczema. Social History - Reports occasional joint impacts withi n the home environment, primarily wrist injuries when hitting objects. Family History - No known familial history of hemochrom atosis. - Family history indicative of needing c olonoscopies every 3-4 years. Problem List - Hyperferritinemia. - History of Lyme disease. - Essential Hypertension (monitoring dis cussed). - Hyperlipidemia. - Diabetes diet control - slight anemia - elevated B12 - elevated T bili Patient Instructions - Proceed with hemochromatosis gene test and Lyme test during the next lab visit. - Maintain weight record and continue mo nitoring blood pressure. - Apply and manage eczema with the provi ded cream, stopping usage when necessary. - Plan for colonoscopy follow-up in [facility] with the family history. in 2028 Review of Systems - General: No fever no chills - Neurological: No headaches no dizzin ess - Ear nose throat: No sore throat no hearing difficulty no ear pain - Cardiovascular: No syncope, no chest pain, no palpitations - Gastrointestinal: No nausea vomiting or diarrhea - Endocrine: No polyuria polydipsia no heat intolerance - Genitourinary: No dysuria - Skin: No new complaints Physical Exam General: Cooperative, healthy appearing, comfortable, no acute distress Orientation: Patient oriented x3 Limitations: none Head: Normal to inspection Ears: Within normal limit visually, no problem reported Nose: Normal external nose present Face and sinus: Normal facial exam Eyes: Appearance normal, extraocular movement intact pupils reactive Neck: Normal visual inspection and supple, occasional stiffness noted Respiratory: Normal respiratory effort and able to speak in complete sentences. Clear to auscultation, no stridor Cardiovascular: S1 and S2 GI: Normal to inspection. Soft to palpation and nontender, no pain in the belly Skin: Turgor normal, no acute findings, eczema present and managed with cream Neuro: Patient oriented x3, motor sensory intact, balance intact, tandem pass Extremities: Normal to inspection, ROM intact PFSH Medical History Sessile serrated polyp of colon Tubular adenoma of colon Psoriasis Lipid disorder Diabetes Surgical History Hx of colonoscopy No pertinent past surgical history Family History Brother Substance use disorder Social History Housing: Apartment Patient Tobacco Use Status: Never used Tobacco e-Cigarette/Vaping Use: Never Used Second Hand Smoke Exposure: No service: No Current occupational status: employed Current occupation: [employer] Cognitive needs: No Hearing needs: No Vision needs: No Questionnaire Thrive Questionnaire Date Thrive assessed: 01/27/25 I am a: Patient What is your living situation today?: I have a steady place to live Within the past 12 months, did the food you bought not last and you didn't have the money to get more?: Never true Within the past 12 months, did you worry whether your food would run out before you got money to buy more?: Never true Do you have trouble paying for medicines?: No Do you have trouble getting transportation to medical appointments?: No Do you have trouble paying your heating and electricity bill?: No Do you have trouble taking care of your child, family member or friend?: No Do you have trouble with day-to-day activities such as bathing, preparing meals, shopping, managing finances, etc.?: No Are you currently unemployed and looking for a job?: No Are you interested in more education?: Yes Please select the resources that you would like help with: None Currently or been in a relationship where the following occur: No concerns reported THRIVE Score: 0 MARCO-7 AMB Questionnaire MARCO-7 Date MARCO - 7 assessed: 09/08/24 Source: Developed by Drs. Toy Walls, Lashae Mtz, Estiven Daugherty and colleagues, with an educational jewels from [employer]. Physical exam (Primary Care) Vital Signs: Last Vital Signs Pulse 83 01/27/25 10:12 BP 138/82 01/27/25 10:12 Pulse Ox 97 01/27/25 10:12 Oxygen Delivery Method Room Air 01/27/25 10:12 BMI result Body Mass Index 27.2 Tobacco/Smoking Status: Tobacco use Status Tobacco use date assessed 09/08/24 01/27/25 10:14 Patient Tobacco Use Status Never used Tobacco 01/27/25 10:14 e-Cigarette/Vaping Use Never Used 01/27/25 10:14 Thrive Assessment: Date of Thrive Assessment Date Thrive assessed 01/27/25 01/27/25 10:14 Currently or been in a relationship where the following occur: No concerns reported Immunizations Boostrix Tdap 2.5 Lf unit-8 mcg-5 Lf/0.5 mL intramuscular syringe Performing Provider: Magda Woodard MD Performing Location: [facility] Administered by: Fly Franklin CMA on 01/27/25 10:52 Dose Route Admin Location Dispensed Lot Number Expiration Date 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 0.5 mL IM Right Deltoid 0.5 mL [id number] 03/06/27 [id number] [employer] Total Dispensed Waste 0.5 mL 0 % VIS Given Date VIS Provided VIS Publication Date 01/27/25 Single Vaccine 21 Eligibility Eligibility Date Funding Source Not [facility] Eligible 01/27/25 Private Coding Level of Care Code Est Pt Level 4 (48572) Est Pt Prev Care 40-64y(80291) Diagnoses Encounter for general adult medical examination with abnormal findings Z00.01 Type 2 diabetes mellitus without complication, without long-term current use of insulin E11.9 Diabetes mellitus complication status: without complication Diabetes mellitus keno terminal operator insulin use: without keno terminal operator use Hx of Lyme disease Z86.19 Elevated vitamin B12 level R79.89 Lipid disorder E78.9 Diastolic hypertension I10 LFT elevation R79.89 Elevated ferritin R79.89 Assessment & Plan Assessment & Plan (1) Encounter for general adult medical examination with abnormal findings: Code(s): Z00.01 - Encounter for general adult medical examination with abnormal findings Category: Medical (2) Type 2 diabetes mellitus: Code(s): E11.9 - Type 2 diabetes mellitus without complications Category: Medical Qualifiers: Diabetes mellitus complication status: without complication Diabetes mellitus keno terminal operator insulin use: without fdc use Qualified Code(s): E11.9 - Type 2 diabetes mellitus without complications (3) Hx of Lyme disease: Code(s): Z86.19 - Personal history of other infectious and parasitic diseases Category: Medical (4) Elevated vitamin B12 level: Code(s): R79.89 - Other specified abnormal findings of blood chemistry Category: Medical (5) Lipid disorder: Code(s): E78.9 - Disorder of lipoprotein metabolism, unspecified Category: Medical (6) Diastolic hypertension: Code(s): I10 - Essential (primary) hypertension Category: Medical (7) LFT elevation: Code(s): R79.89 - Other specified abnormal findings of blood chemistry Category: Medical (8) Elevated ferritin: Code(s): R79.89 - Other specified abnormal findings of blood chemistry Category: Medical Plan Chief Complaint The patient presents for a routine physical exam and review of recent laboratory findings. History - The patient is a 54-year-old male presenting with concerns regarding his laboratory results and a previous history of Lyme disease. - He reports previous high ferritin levels, which have now decreased, and a concern about a pending hemochromatosis gene test which was ordered but not completed. - The patient recalls a past occurrence of Lyme disease diagnosed in approximately 2013, associated with knee stiffness and joint pain but reports these symptoms resolved after treatment. - Current mild joint discomfort and skin changes (eczema) are noted but are not significant at present. Medical History: - History of Lyme disease treated successfully post-diagnosis in 2013. - Eczema, currently managed with topical treatment. - DM - elevated b12 - elevated ferritin - Lft - slight anemia Diagnostic Results: - Labs: Hemoglobin stable at 13.7 (slightly low), fasting sugar 157 with A1c of 6.9, ferritin at 353, total bilirubin at 1.5, LDL at 142, significantly high B12 levels at 942 (no supplements taken). Vitamin D results pending. Health Maintenance - Colonoscopy performed last year; next one recommended in 2028 due to family history. - Tetanus vaccine discussed and acknowledged as necessary. Medications - Current topical cream for eczema. Social History - Reports occasional joint impacts within the home environment, primarily wrist injuries when hitting objects. Family History - No known familial history of hemochromatosis. - Family history indicative of needing colonoscopies every 3-4 years. Problem List - Hyperferritinemia. - History of Lyme disease. - Essential Hypertension (monitoring discussed). - Hyperlipidemia. - Diabetes diet control - slight anemia - elevated B12 - elevated T bili Patient Instructions - Proceed with hemochromatosis gene test and Lyme test during the next lab visit. - Maintain weight record and continue monitoring blood pressure. - Apply and manage eczema with the provided cream, stopping usage when necessary. - Plan for colonoscopy follow-up in accordance with the family history. in 2028 Orders: Orders Hemoglobin A1c 4 Months E11.9 - Type 2 diabetes mellitus without complications, E78.9 - Disorder of lipoprotein metabolism, unspecified, I10 - Essential (primary) hypertension, R79.89 - Other specified abnormal findings of blood c hemistry, Z00.01 - Encounter for general adult medical examination with abnormal findings Comprehensive [place]. Panel Fast 4 Months E11.9 - Type 2 diabetes mellitus without complications, E78.9 - Disorder of lipoprotein metabolism, unspecified, I10 - Essential (primary) hypertension, R79.89 - Other specified abnormal findings of blood chemistry, Z00.01 - Encounter for general adult medical examination with abnormal findings Lipid Panel 4 Months E11.9 - Type 2 diabetes mellitus without complications, E78.9 - Disorder of lipoprotein metabolism, unspecified, I10 - Essential (primary) hypertension, R79.89 - Other specified abnormal findings of blood chemistry, Z00.01 - Encounter for general adult medical examination with abnormal findings Lyme IgG/IgM w/reflex to WB Today Z86.19 - Personal history of other infectious and parasitic diseases Complete Blood Count Auto Diff 4 Months E11.9 - Type 2 diabetes mellitus without complications, E78.9 - Disorder of lipoprotein metabolism, unspecified, I10 - Essential (primary) hypertension, R79.89 - Other specified abnormal findings of blood chemistry, Z00.01 - Encounter for general adult medical examination with abnormal findings Vitamin B12 4 Months E11.9 - Type 2 diabetes mellitus without complications, E78.9 - Disorder of lipoprotein metabolism, unspecified, I10 - Essential (primary) hypertension, R79.89 - Other specified abnormal findings of blood chemistry, Z00.01 - Encounter for general adult medical examination with abnormal findings Ferritin 4 Months E11.9 - Type 2 diabetes mellitus without complications, E78.9 - Disorder of lipoprotein metabolism, unspecified, I10 - Essential (primary) hypertension, R79.89 - Other specified abnormal findings of blood chemistry, Z00.01 - Encounter for general adult medical examination with abnormal findings TDaP Immunization Today Z23 - Encounter for immunization Medications: Refilled clobetasol 0.05% 1 appl topical BID 60 grams 3RF 2 weeks L40.9 - Psoriasis, unspecified
== END 2025-01-27 10:49 | disposition home or self-care (01) ==
LOC: HO.HMCC 10:10
PROVIDERS: PCP Internal Medicine; Visit Provider Internal Medicine
DX: Z00.00 Encounter for general adult medical examination without abnormal findings (principal); E11.9 Type 2 diabetes mellitus without complications; Z86.19 Personal history of other infectious and parasitic diseases; R79.89 Other specified abnormal findings of blood chemistry; E78.9 Disorder of lipoprotein metabolism, unspecified; I10 Essential (primary) hypertension; Z23 Encounter for immunization

== ENCOUNTER 2025-01-27 10:09 | Outpatient (REF) | payer OTHER, SELFPAY ==
[2025-01-27 14:24] LABS: Vitamin B12 958 pg/mL (200-900)
[2025-01-28 07:14] LABS: Lyme Blot >10.00 index
[2025-01-31 11:45] LABS: Lyme Abs Screen POSITIVE
[2025-02-08 23:03] LABS: 39KD (IgG) Band REACTIVE; 41KD (IgG) Band REACTIVE; Lyme IgG Blot Interp POSITIVE (NEGATIVE); Lyme IgM Blot Interp NEGATIVE (NEGATIVE)
== END 2025-01-27 10:10 | disposition home or self-care (01) ==
LOC: HO.LAB 10:09
PROVIDERS: PCP Internal Medicine; Visit Provider Internal Medicine
DX: Z00.01 Encounter for general adult medical examination with abnormal findings (principal); Z23 Encounter for immunization; E11.9 Type 2 diabetes mellitus without complications; R79.89 Other specified abnormal findings of blood chemistry; E78.9 Disorder of lipoprotein metabolism, unspecified; I10 Essential (primary) hypertension; Z86.19 Personal history of other infectious and parasitic diseases
CPT/HCPCS: 36415; 81256; 82607; 86617; 86618; 90471; 90715

== ENCOUNTER 2025-02-11 08:22 | Outpatient (AMB) | payer OTHER, SELFPAY ==
--- NOTE | 2025-02-11 09:11 | A.OFFPC_ITS ---
Intake Visit Reasons: lab results Allergies No Known Allergies (No Known Allergies*) Allergy (Verified 01/27/25 10:13) Medication List - Last Reconciled 02/11/25 by Magda Woodard MD clobetasol 0.05% 1 appl topical BID 2 weeks Tobacco use date assessed: 09/08/24 Dental Screening Dental Screen Date: 09/08/24 HPI lab results HPI Details Chief Complaint The patient is concerned about a high positive Lyme test. History of Present Illness The patient is a 54-year-old male presenting with ongoing issues related to Lyme disease. Lyme Disease: - Approximately took an antibiotic in un known duration for Lyme disease; details about the treatment duration and dose are unclear to both the patient and me. - Initial diagnosis followed by a positi ve Lyme test with very high titers. - Patient's previous hospitalization or treatment details couldn?t be found by the patient. - Patient reports questions relating to the IgM and IgG antibody levels with regard to the fresh infection nature and the long-term infection presence respectively. - Expressed concern over possible chroni c Lyme complications due to high titers being positive. - Suspects an association between the Ly me disease and left-hand pain, which the patient mentioned in the conversation. Medical History: - Positive for Lyme disease with recentl y detected high antibody titers from previous tests. Diagnostic Results: - Labs: Lyme serology confirmed with hig h titers indicating active Lyme disease. - Mention of IgG and IgM antibodies with the positive result Problem List - Chronic Lyme Disease Medication History - Prior use of doxycycline ? for Lyme di sease, but the patient does not recall the specifics of the dosage or the length of therapy. Patient Instructions - Take doxycycline, one tablet twice geraldine ly for 30 days. 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 - Follow the prescribed course as instru cted on the medication bottle. Medical Decision Making The patient presented with concerns regarding an active Lyme disease diagnosis confirmed through elevated serology titers. The positive IgM and IgG antibodies suggest both recent and long-term exposure to Borrelia burgdorferi, indicating ongoing infection, which warrants further treatment to avert potential complications. Given the lack of comprehensive previous treatment details and persistence of high antibody titers, I recommended a repeat course of doxycycline for one month to potentially eradicate any remaining bacterial activity and to provide reassurance against symptomatic or progressive manifestations. This approach is taken due to potential serious systemic complications associated with untreated or inadequately treated Lyme disease. The anticipated outcome is reducing or eliminating persistent infection risks and complications. we were demetrius able to retrieve the old Medical record from [facility] [place], dated 2014 patient was prescribed doxycycline which he couldnt afford so antibiotic was changed to amoxicillin for 3 wks at that time Review of Systems - General: No fever no chills - Neurological: No headaches no dizziness - Ear nose throat: No sore throat no hearing difficulty no ear pain - Cardiovascular: No syncope, no chest pain, no palpitations - Gastrointestinal: No nausea vomiting or diarrhea PFSH Medical History Sessile serrated polyp of colon Tubular adenoma of colon Psoriasis Lipid disorder Diabetes Surgical History Hx of colonoscopy No pertinent past surgical history Family History Brother Substance use disorder Social History Housing: Apartment Patient Tobacco Use Status: Never used Tobacco e-Cigarette/Vaping Use: Never Used Second Hand Smoke Exposure: No service: No Current occupational status: employed Current occupation: [employer] Cognitive needs: No Hearing needs: No Vision needs: No Questionnaire Thrive Questionnaire Date Thrive assessed: 01/27/25 MARCO-7 AMB Questionnaire MARCO-7 Date MARCO - 7 assessed: 09/08/24 Source: Developed by Drs. Toy Walls, Lashae Mtz, Estiven Daugherty and colleagues, with an educational jewels from [employer]. 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 History of Present Illness The patient is a 54-year-old male presenting with ongoing issues related to Lyme disease. Lyme Disease: - Approximately took an antibiotic in unknown duration for Lyme disease; details about the treatment duration and dose are unclear to both the patient and me. - Initial diagnosis followed by a positive Lyme test with very high titers. - Patient's previous hospitalization or treatment details couldn?t be found by the patient. - Patient reports questions relating to the IgM and IgG antibody levels with regard to the fresh infection nature and the long-term infection presence respectively. - Expressed concern over possible chronic Lyme complications due to high titers being positive. - Suspects an association between the Lyme disease and left-hand pain, which the patient mentioned in the conversation. Medical History: - Positive for Lyme disease with recently detected high antibody titers from previous tests. Diagnostic Results: - Labs: Lyme serology confirmed with high titers indicating active Lyme disease. - Mention of IgG and IgM antibodies with the positive result Problem List - Chronic Lyme Disease Medication History - Prior use of doxycycline ? for Lyme disease, but the patient does not recall the specifics of the dosage or the length of therapy. Patient Instructions - Take doxycycline, one tablet twice daily for 30 days. 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 - Follow the prescribed course as instructed on the medication bottle. Medical Decision Making The patient presented with concerns regarding an active Lyme disease diagnosis confirmed through elevated serology titers. The positive IgM and IgG antibodies suggest both recent and long-term exposure to Borrelia burgdorferi, indicating ongoing infection, which warrants further treatment to avert potential complications. Given the lack of comprehensive previous treatment details and persistence of high antibody titers, I recommended a repeat course of doxycycline for one month to potentially eradicate any remaining bacterial activity and to provide reassurance against symptomatic or progressive manifestations. This approach is taken due to potential serious systemic complications associated with untreated or inadequately treated Lyme disease. The anticipated outcome is reducing or eliminating persistent infection risks and complications. we were demetrius able to retrieve the old Medical record from [facility] [place], dated 2014 patient was prescribed doxycycline which he couldnt afford so antibiotic was changed to amoxicillin for 3 wks at that time Medications: New doxycycline hyclate 100 mg PO BID 60 caps 0RF 30 days
== END 2025-02-11 09:17 | disposition home or self-care (01) ==
LOC: HO.HMCC 08:22
PROVIDERS: PCP Internal Medicine; Visit Provider Internal Medicine
DX: A69.23 Arthritis due to Lyme disease (principal)

== ENCOUNTER 2025-05-31 08:41 | Outpatient (REF) | payer OTHER, SELFPAY ==
[2025-05-31 10:00] LABS: MANUAL DIFF FLAG NO
[2025-05-31 10:17] LABS: Hematocrit 42.8 % (42.0-52.0); Hemoglobin 14.1 g/dl (14.0-18.0); Imm Gran Abs Auto 0.02 X10*3/uL (0.00-0.03); Imm Gran Pct Auto 0.3 % (0.0-0.4); Lymphocytes Absolute Auto 1.5 X10*3/uL (1.2-4.9); Mean Corpuscular HGB Conc 32.9 g/dl (31.0-36.0); Mean Corpuscular Hemoglobin 29.0 pg (27.0-33.0); Mean Corpuscular Volume 87.9 fL (80.0-98.0); NRBC Abs Auto 0.000 X10*3/uL (0.0-0.012); NRBC Pct Auto 0.0 /100WBC (0.0-0.2); Platelet Count 247 X10*3/uL (160-400); Red Blood Count 4.87 X10*6/uL (4.60-5.80); White Blood Count 6.0 X10*3/uL (4.8-10.8)
[2025-05-31 10:43] LABS: Alanine Aminotransferase 31 U/L (0-40); Albumin Level 4.7 g/dL (3.5-5.0); Alkaline Phosphatase 77 U/L (39-117); Anion Gap 9 (12-20); Aspartate Amino Transferase 28 U/L (5-37); Blood Urea Nitrogen 20 mg/dL (9-16); Calcium 9.1 mg/dL (8.4-10.2); Carbon Dioxide 28 mmol/L (22-29); Chloride 105 mmol/L (96-108); Cholesterol 219 mg/dL (<200); Estimated Glomerular Filt Rate > 60; HDL Cholesterol 44 mg/dL (>40); Potassium 4.2 mmol/L (3.3-5.1); Sodium 138 mmol/L (135-145); Total Protein 7.3 g/dL (6.5-8.0); Triglycerides 100 mg/dL (<150)
[2025-05-31 10:49] LABS: Vitamin B12 829 pg/mL (200-900)
[2025-05-31 11:00] LABS: Ferritin 418 ng/mL (20-250)
== END 2025-05-31 08:42 | disposition home or self-care (01) ==
LOC: HO.HMGCLDS 08:41
PROVIDERS: PCP Internal Medicine; Visit Provider Internal Medicine
DX: Z00.00 Encounter for general adult medical examination without abnormal findings (principal); E11.9 Type 2 diabetes mellitus without complications; I10 Essential (primary) hypertension; R79.89 Other specified abnormal findings of blood chemistry; E78.9 Disorder of lipoprotein metabolism, unspecified
CPT/HCPCS: 36415; 80053; 80061; 82607; 82728; 83036; 85025

== ENCOUNTER 2025-06-01 09:19 | Outpatient (AMB) | payer OTHER, SELFPAY ==
[2025-06-01 09:24] VITALS: BP 138/80; PULSE 84; BMI 27.3
--- NOTE | 2025-06-01 09:24 | A.OFFPC_ITS ---
Vital Signs 06/01/25 09:24 Height 6 ft 1 in Weight 207 lb BMI 27.3 BP 138/80 Blood Pressure Location Lt brachial Position Sitting Pulse 84 Pulse Source Pulse Oximeter Intake Visit Reasons: 4m f/u Supervisor Audit Clerks Required: No Accompanied by: Self / Same As Patient Allergies No Known Allergies (No Known Allergies*) Allergy (Verified 06/01/25 09:24) Medication List - Last Reconciled 06/01/25 by Magda Woodard MD clobetasol 0.05% 1 appl topical BID 2 weeks Tobacco use date assessed: 09/08/24 Dental Screening Dental Screen Date: 09/08/24 HPI HPI Comments History of Present Illness Details History of Present Illness The patient is a 55 year old individual presenting for a follow-up visit to discuss recent lab results and manage chronic conditions. Type 2 Diabetes Mellitus: - The patient has been managing diabetes with diet control but reports recent non-adherence. - The hemoglobin A1c has risen to 7.4% f rom a previous level of 6.9%. - The patient questions if stress from a recent house purchase could have contributed to the elevated glucose levels. Hemochromatosis: - The patient has a known history of hem ochromatosis with one positive gene. - Recent lab work shows an elevated iron level of 418, with the cutoff being 250. - The patient is not taking any iron sup plements. Hyperlipidemia: - The patient's LDL cholesterol is eleva dean at 155 mg/dL. - The patient attributes the high choles terol to recent dietary choices. History of Lyme Disease: - The patient previously had high titers for Lyme disease and completed a one- month course of antibiotics. - Since treatment, the patient reports f eeling better with less frequent aches and pains. Hypertension: - The patient's blood pressure in the of [facility] was 138/80 mmHg, unchanged from the previous visit in January. - At home, the patient reports blood pre ssure readings are typically lower, around 121 over 80. Medical History: - Type 2 Diabetes Mellitus, diet-control led - Hemochromatosis, heterozygous - Hyperlipidemia - Hypertension - History of Lyme disease, treated with a course of antibiotics - History of anemia, resolved Social History: - Housing and Stress: The patient recent ly bought a house, a process which caused significant stress. - Diet: The patient reports recent nonad herence to a healthy diet. - Exercise: Intends to increase exercise . - Weight: The patient's BMI is 27.3. The patient had previously lost weight, reaching a low of 199 lbs. Diagnostic Results: - CBC: Normal. - Hemoglobin: Normal; was previously low in January. - Electrolytes: Okay. - Kidney function: Fine. - Hemoglobin A1c: 7.4% (previously 6.9%) . - Iron level (Ferritin): 418 (cutoff is 250). - LDL cholesterol: 155 mg/dL. - Vitamin B12: 829 (upper limit of yumiko l is 900). [facility] Medical History Sessile serrated polyp of colon Tubular adenoma of colon Psoriasis Lipid disorder Diabetes Surgical History Hx of colonoscopy No pertinent past surgical history Family History Brother Substance use disorder Social History Housing: Apartment Patient Tobacco Use Status: Never used Tobacco e-Cigarette/Vaping Use: Never Used Second Hand Smoke Exposure: No service: No Current occupational status: employed Current occupation: [employer] Cognitive needs: No Hearing needs: No Vision needs: No Questionnaire Thrive Questionnaire Date Thrive assessed: 09/01/24 I am a: Patient What is your living situation today?: I have a steady place to live Within the past 12 months, did the food you bought not last and you didn't have the money to get more?: Never true Within the past 12 months, did you worry whether your food would run out before you got money to buy more?: Never true Do you have trouble paying for medicines?: No Do you have trouble getting transportation to medical appointments?: No Do you have trouble paying your heating and electricity bill?: No Do you have trouble taking care of your child, family member or friend?: No Do you have trouble with day-to-day activities such as bathing, preparing meals, shopping, managing finances, etc.?: No Are you currently unemployed and looking for a job?: No Are you interested in more education?: Yes Please select the resources that you would like help with: None Currently or been in a relationship where the following occur: No concerns reported THRIVE Score: 0 MARCO-7 AMB Questionnaire MARCO-7 Date MARCO - 7 assessed: 09/08/24 Source: Developed by Drs. Toy Walls, Lashae Mtz, Estiven Daugherty and colleagues, with an educational jewels from [email or web address]. Review of Systems Narrative Review of Systems - General: No fever no chills - Neurological: No headaches no dizziness - Ear nose throat: No sore throat no hearing difficulty no ear pain - Cardiovascular: No syncope, no chest pain, no palpitations - Gastrointestinal: No nausea vomiting or diarrhea - Endocrine: No polyuria polydipsia no heat intolerance - Genitourinary: No dysuria , no blood in urine Physical exam (Primary Care) Vital Signs: Last Vital Signs Pulse 84 06/01/25 09:24 BP 138/80 06/01/25 09:24 BMI result Body Mass Index 27.3 Tobacco/Smoking Status: Tobacco use Status Tobacco use date assessed 09/08/24 06/01/25 09:24 Patient Tobacco Use Status Never used Tobacco 06/01/25 09:24 e-Cigarette/Vaping Use Never Used 06/01/25 09:24 Thrive Assessment: Date of Thrive Assessment Date Thrive assessed 09/01/24 06/01/25 09:24 Currently or been in a relationship where the following occur: No concerns reported Narrative Physical Exam - General: No acute distress - HEENT: No acute findings - Neck: Supple - Respiratory system: Able to talk in full sentences, no audible wheeze - Cardiovascular: S1-S2 regular in rate and rhythm - Gastrointestinal: No pain - Extremities: No new findings - TOW BOAT CAPTAIN: Alert awake oriented x3 motor intact - Skin: Normal turgor Coding Level of Care Code Est Pt Level 4 (39029) Diagnoses Lipid disorder E78.9 Type 2 diabetes mellitus without complication, without long-term current use of insulin E11.9 Diabetes mellitus complication status: without complication Diabetes mellitus care home insulin use: without local intermodal truck driver use Elevated ferritin R79.89 Hx of Lyme disease Z86.19 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 Assessment & Plan Assessment & Plan (1) Lipid disorder: Code(s): E78.9 - Disorder of lipoprotein metabolism, unspecified Category: Medical (2) Type 2 diabetes mellitus: Code(s): E11.9 - Type 2 diabetes mellitus without complications Category: Medical Qualifiers: Diabetes mellitus complication status: without complication Diabetes mellitus local intermodal truck driver insulin use: without local intermodal truck driver use Qualified Code(s): E11.9 - Type 2 diabetes mellitus without complications (3) Elevated ferritin: Code(s): R79.89 - Other specified abnormal findings of blood chemistry Category: Medical (4) Hx of Lyme disease: Code(s): Z86.19 - Personal history of other infectious and parasitic diseases Category: Medical (5) Hemochromatosis associated with compound heterozygous mutation in HFE gene: Code(s): E83.110 - Hereditary hemochromatosis Category: Medical Plan Problem List 1. Type 2 Diabetes Mellitus 2. Hypertension 3. Hemochromatosis 4. Hyperlipidemia 5. History of Lyme disease 6. Preventative Care: Influenza vaccination declined. Plan - The patient has agreed to a three-month trial of strict diet and increased exercise to manage diabetes, hyperlipidemia, and weight. - Initiation of medication for diabetes will be considered if the HbA1c remains above 7% after three months. - For hemochromatosis, the patient was advised to avoid iron supplements and iron-rich foods. - The iron level will be monitored, and a referral to hematology will be considered if it exceeds 500. - The patient was advised to inform siblings about the need for hemochromatosis testing. - The patient was advised to not take any Vitamin B12 supplements. - Follow-up fasting blood work, including Lyme disease titers, will be performed in three months. - The patient declined the influenza vaccine. Orders: Orders Complete Blood Count Auto Diff 3 Months E11.9 - Type 2 diabetes mellitus without complications, E78.9 - Disorder of lipoprotein metabolism, unspecified, R79.89 - Other specified abnormal findings of blood chemistry, Z86.19 - Personal history of other infectious and parasitic diseases Comprehensive [place]. Panel Fast 3 Months E11.9 - Type 2 diabetes mellitus without complications, E78.9 - Disorder of lipoprotein metabolism, unspecified, R79.89 - Other specified abnormal findings of blood chemistry, Z86.19 - Personal history of other infectious and parasitic diseases Hemoglobin A1c 3 Months E11.9 - Type 2 diabetes mellitus without complications, E78.9 - Disorder of lipoprotein metabolism, unspecified, R79.89 - Other specified abnormal findings of blood chemistry, Z86.19 - Personal history of other infectious and parasitic diseases Lipid Panel 3 Months E11.9 - Type 2 diabetes mellitus without complications, E78.9 - Disorder of lipoprotein metabolism, unspecified, R79.89 - Other specified abnormal findings of blood chemistry, Z86.19 - Personal history of other infectious and parasitic diseases Lyme IgG/IgM w/reflex to WB 3 Months E11.9 - Type 2 diabetes mellitus without complications, E78.9 - Disorder of lipoprotein metabolism, unspecified, R79.89 - Other specified abnormal findings of blood chemistry, Z86.19 - Personal history of other infectious and parasitic diseases
== END 2025-06-01 09:42 | disposition home or self-care (01) ==
LOC: HO.HMCC 09:20
PROVIDERS: PCP Internal Medicine; Visit Provider Internal Medicine
DX: E78.9 Disorder of lipoprotein metabolism, unspecified (principal); E11.9 Type 2 diabetes mellitus without complications; R79.89 Other specified abnormal findings of blood chemistry; Z86.19 Personal history of other infectious and parasitic diseases; E83.110 Hereditary hemochromatosis